=== PATIENT | male | born 1960 | race Caucasian/White ===

== ENCOUNTER 2023-09-21 11:47 | Inpatient (IN) | payer OTHER, SELFPAY ==
[2023-09-21] VITALS (15 sets, daily range): BP systolic 116–162; BP diastolic 75–100; BMI 29.0
--- NOTE | 2023-09-21 09:56 | EDRN ---
Acosta FIGUEROA in room w/pt at this time.
--- NOTE | 2023-09-21 10:05 | ED.GENMED ---
History of Present Illness
<Domenico Carrizales PA-C - Last Filed: 09/21/23 10:50>
General
Chief Complaint: Chest Pain
Source: patient
Exam Limitations: none
Time Seen by Provider: 09/21/23 09:50
Travel History
Have you had any contact with someone who has COVID-19?: No
Do you have any symptoms of coronavirus? Fever > 100 degrees, chills, cough, shortness of breath, sore throat, loss of taste or smell, muscle aches, or headache?: No
History of Present Illness
History of Present Illness:
63-year-old male with history of hypertension hyperlipidemia presents with worsening symptoms. He has been in touch with cardiology had a recent stress test which he failed. He had an echocardiogram recently. He was actually due for heart
catheterization today however symptoms worsened this morning he spoke with his tour counselor and was advised to come in. He notes mainly exertional chest pain over the past month the amount of exertion needed to reproduce pain is significantly
decreased. While at rest on the bed currently states his pain is barely noticeable. He notes more so in the fatigue. No pleuritic discomfort. No recent extended travel or surgery. He has a family history cardiac disease.
Phy Exam
<Domenico Carrizales PA-C - Last Filed: 09/21/23 10:50>
Physical Exam
Physical Exam:
General: Uncomfortable slightly anxious appearing male no acute respiratory distress
HEENT: Normocephalic atraumatic
Heart: Regular rate and rhythm no murmurs
Lungs: Clear to auscultation bilaterally no wheezing
Abdomen is soft nontender nondistended
Extremities: No cyanosis
Scores
<Domenico Carrizales PA-C - Last Filed: 09/21/23 10:50>
Heart Score for Chest Pain Patients
STEMI patient?: No
History: Highly Suspicious
ECG: Nonspecific Repolarization
Age: >45 - <65 years
Risk Factors: 1 or 2 Risk Factors
Troponin: </= Normal Limit
Heart Score for Chest Pain Patients: 5
Heart Score Risk: 20.3% MACE over next 6 weeks
Course
Daynalt;Domenico Carrizales PA-C - Last Filed: 09/21/23 10:50>
Orders/Labs/Results
Orders:
Orders
09/21/23 09:45
EKG [Electrocardiogram (*1)] Urgent
Reason for Study: Chest Pain
EKG- Treatment ONCE
09/21/23 10:10
Aspirin Chewable [Low Strength Aspirin] 243 mg PO NOW STA
09/21/23 10:15
Complete Blood Count/With Diff Urgent
Comprehensive Metabolic Panel Urgent
NT-proBNP Urgent
Troponin I Urgent
09/21/23 10:27
CR Chest Portable - 1 View Urgent
Comment:
Reason For Exam: chest pain
Reason Study Needs to be Portable: Patient Unstable
Abnormal Lab Results
09/21/23
10:15
MPV 11.0 H fL
(7.4-10.4)
Absolute Lymphs (auto) 1.1 L 10^3/uL
(1.2-3.4)
Neutrophils % 78.5 H %
(42.2-75.2)
Lymphocytes % 14.5 L %
(20.5-51.1)
09/21/23 10:15
Vital Signs
Initial and Last Documented VS:
Initial Vital Signs
Temp Pulse Resp BP Pulse Ox
97.6 F 65 16 162/97 100
09/21/23 09:45 09/21/23 09:45 09/21/23 09:45 09/21/23 09:45 09/21/23 09:45
Last Documented Vital Signs
Temp Pulse Resp BP Pulse Ox
97.6 F 65 16 162/97 100
09/21/23 09:45 09/21/23 09:45 09/21/23 09:45 09/21/23 09:45 09/21/23 09:45
<Sergio Salcedo MD - Last Filed: 09/21/23 10:27>
Orders/Labs/Results
Orders:
Orders
09/21/23 09:45
EKG [Electrocardiogram (*1)] Urgent
Reason for Study: Chest Pain
EKG- Treatment ONCE
09/21/23 10:10
Aspirin Chewable [Low Strength Aspirin] 243 mg PO NOW STA
09/21/23 10:15
Complete Blood Count/With Diff Urgent
Comprehensive Metabolic Panel Urgent
NT-proBNP Urgent
Troponin I Urgent
09/21/23 10:27
CR Chest Portable - 1 View Urgent
Comment:
Reason For Exam: chest pain
Reason Study Needs to be Portable: Patient Unstable
Abnormal Lab Results
09/21/23
10:15
MPV 11.0 H fL
(7.4-10.4)
Absolute Lymphs (auto) 1.1 L 10^3/uL
(1.2-3.4)
Neutrophils % 78.5 H %
(42.2-75.2)
Lymphocytes % 14.5 L %
(20.5-51.1)
09/21/23 10:15
Vital Signs
Initial and Last Documented VS:
Initial Vital Signs
Temp Pulse Resp BP Pulse Ox
97.6 F 65 16 162/97 100
09/21/23 09:45 09/21/23 09:45 09/21/23 09:45 09/21/23 09:45 09/21/23 09:45
Last Documented Vital Signs
Temp Pulse Resp BP Pulse Ox
97.6 F 65 16 162/97 100
03/08/24 09:45 09/21/23 09:45 09/21/23 09:45 09/21/23 09:45 09/21/23 09:45
<Domenico Carrizales PA-C - Last Filed: 09/21/23 10:50>
MDM/Problems Addressed
Differential Diagnosis Includes:
Exertional chest pain over the past month worsening recently. Initially due for catheterization later today but sent in for more urgent evaluation. Currently at rest he notes minimal if any pain will obtain EKG and labs. Contact cardiology.
<Domenico Carrizales PA-C - Last Filed: 09/21/23 10:50>
*Critical Care Note
Total Time (30-74mins, 75-104mins- exclusive of procedures): Not Applicable
ED Attending Note
<Domenico Carrizales PA-C - Last Filed: 09/21/23 10:50>
-
Portions of this chart may have been created with voice recognition software.� Occasional wrong word or��sound alike� substitutions may have occurred due to the inherent limitations of voice recognition software.
<Sergio Salcedo MD - Last Filed: 09/21/23 10:27>
ED Attending Note
I performed the substantive portion of visit, reviewed & personally made and approve the management plan that is documented in note by myself or PHIL.: Yes
ED Attending Note:
Patient presents to ED for evaluation secondary to exertional chest pain over the past 1 month along with an abnormal outpatient stress test. Chest pain described as tightness, nonradiating, worse with exertion, gradually improves at rest. Denies
fever or chills. Denies shortness of breath. Denies nausea or vomiting. Denies dizziness. Denies diaphoresis. Denies previous history of similar symptoms. Patient does have a history of hypertension and hypercholesterolemia. Denies smoking or
drinking alcohol. Denies recent illness.
Discussed with Dr. Davis, cardiology Marketing Strategist attending. Requesting admission under pulse and cardiology services for potential cardiac catheterization. Does not feel that patient needs heparin protocol at this time, but will defer to admitting
tour counselor. Dr. Hoskins from [facility] consulted
Discharge Plan
Departure
Patient Disposition: Admit
Date of Disposition: 09/21/23
Time of Disposition: 10:49
Admit to: IVU
Presentation/result/management discussed w/ accepting /: Aidee
Discharge Problem:
Chest pain
Prescriptions:
No Action
metoprolol succinate 50 mg tablet extended release 24 hr
50 mg PO DAILY
amlodipine 5 mg tablet
5 mg PO DAILY
aspirin 81 mg tablet,delayed release (DR/EC)
81 mg PO DAILY
isosorbide mononitrate 60 mg tablet extended release 24 hr
60 mg PO DAILY
nitroglycerin 0.4 mg tablet, sublingual
0.4 mg sublingual PRN PRN (Reason: chest pain)
rosuvastatin 20 mg tablet
20 mg PO DAILY
Referrals:
Miguel Angel Torres MD [Family Provider] -
Interventions
Interventions:
*Risk Screen - Suicide Last Done: 09/21/23 09:45
*General Assessment Last Done: 09/21/23 09:45
*Neglect/Abuse Screening Last Done: 09/21/23 09:45
--- NOTE | 2023-09-21 10:07 | EDRN ---
Dr. Salcedo in room w/pt at this time.
--- NOTE | 2023-09-21 10:15 | CON.CAR ---
Addendum entered and electronically signed by Billy Hoskins MD 09/21/23 13:13:
I saw and examined the patient.
The IV TECHNICIAN or PA's note was reviewed and I agree with the note.
Comment: General: Well developed, well nourished in NAD.
Neck: Supple, no JVD, HJR, carotids +2 B/L, no bruits bilaterally.
Heart: Non displaced PMI, RRR, no murmurs, No S3, S4, no rubs.
Lungs: Clear to auscultation bilaterally, no wheeze, rhonchi, rubs bilaterally,
normal expiratory phase.
Abdomen: Normal bowel sounds, soft, non-tender, non-distended.
Extremities: No clubbing, cyanosis or edema bilaterally.
Neuro: Grossly nonfocal, awake, alert and oriented x3.
Mohan has a history of hypertension, hyperlipidemia, sleep apnea on CPAP. He has had worsening chest pain. Stress test was high risk with inferolateral ischemia noted. He came to ER with worsening symptoms and now admitted for cardiac
catheterization. Of note he has had chest discomfort but lesser degrees of exertion and also some mild pain at rest.
He will undergo cardiac catheterization by Dr. Mckee later today. Treatment will depend on the results of the catheterization. Of note ejection fraction is 45% and may need treatment of cardiomyopathy.
Original Note:
Consultation
Consultation Request
Date/Time Consultation Requested: 09/21/2023
Date/Time Consultation Performed: 09/21/2023
Requesting Provider: Dr. Salcedo
Performing Provider: Dr. Hoskins
Reason for Consultation: Chest pain
Medical History
-
History of Present Illness:
HPI: Yves is a 63 year old male with PMH of HTN, HLD, and NESS on CPAP who presented to [facility] due to progressively worsening angina. He was recently seen by cardiology at [facility] and was arranged for echo and stress testing. Stress testing reportedly
was high risk with significant inferolateral ischemia noted. Due to progressive symptoms, came to ER for sooner evaluation. He reports overall symptoms started approximately 1 month ago when he began having increased chest pain with exertion.
Symptoms resolved with rest. Over time, symptoms have been brought on with lesser and lesser degrees of exertion and now he is symptomatic with minimal exertion and has mild pain at rest. Denies any associated shortness of breath, dizziness,
lightheadedness, lower extremity edema, or diaphoresis. He reports currently he has very minimal discomfort. He notes no personal prior cardiac history, however notes strong family history in his mother, father, and brother.
PMH:
Abnormal, high risk stress test
Cardiomyopathy
HTN
HLD
NESS on CPAP
Past Medical History
Past Medical History: Other (In HPI)
Past Surgical History: Other (Hernia surgery 2014)
Social History
Tobacco: Non-Smoker
Alcohol: Occasional
Drug: None
Personal:
Living: With Family
Employment: Employed (Insurance)
Family History
Family History: CAD
Review of Systems
-
History Source: Patient
All other systems: Negative unless noted
Physical Exam
Vital Signs
Temp Pulse Resp BP Pulse Ox
97.6 F 65 16 162/97 100
09/21/23 09:45 09/21/23 09:45 09/21/23 09:45 09/21/23 09:45 09/21/23 09:45
Physical Exam
General: Well Developed, Well Nourished and No Apparent Distress
HEENT: Normocephalic, Anicteric and Moist Mucous Membranes
Respiratory: Clear and Non Labored Respirations
Cardiac: S1/S2 and Regular Rhythm
Musculoskeletal: No Clubbing, No Cyanosis and No Edema
Skin: Warm and Dry
Neuro: AO x 3 and Nonfocal/Grossly Intact
Psych: Calm
Impression / Plan
-
PCP: Dr. Torres
Envelope Folder: Dr. Guillen
Impression:
Presented with chest pain
Unstable angina
Abnormal, high risk stress test
Cardiomyopathy, suspected ischemic
HTN
HLD
NESS on CPAP
Echo 09/05/2023: EF 45%, mild concentric LVH, no significant valvular disease
Plan:
-Presented for evaluation of progressive angina. He has noted chest pain with even minimal exertion. Symptoms have progressed over the past month, prompting ER evaluation.
-Recent OP echo as noted above showed EF 45%.
-He then had stress test 09/14/2023 which reportedly was high risk with significant ischemia. Report requested.
-Presented today for more urgent eval as symptoms have worsened.
-Troponin negative x1 in ER.
-Plan will be to admit to IVU with plan for urgent LHC later today with Dr. Davis.
-Aspirin 324mg given in ER. Continue aspirin 81 mg daily. Denies any notable chest pain currently while resting in ER, will hold off on heparin.
-Continue medical therapy with Imdur, amlodipine, and Toprol.
-Continue crestor.
HPI: Yves is a 63 year old male with PMH of HTN, HLD, and NESS on CPAP who presented to [facility] due to progressively worsening angina. He was recently seen by cardiology at [facility] and was arranged for echo and stress testing. Stress testing reportedly
was high risk with significant inferolateral ischemia noted. Due to progressive symptoms, came to ER for sooner evaluation. He reports overall symptoms started approximately 1 month ago when he began having increased chest pain with exertion.
Symptoms resolved with rest. Over time, symptoms have been brought on with lesser and lesser degrees of exertion and now he is symptomatic with minimal exertion and has mild pain at rest. Denies any associated shortness of breath, dizziness,
lightheadedness, lower extremity edema, or diaphoresis. He reports currently he has very minimal discomfort. He notes no personal prior cardiac history, however notes strong family history in his mother, father, and brother.
Data Reviewed
-
EKG: Tracing Personally Visualized and interpreted
Radiology: Report Reviewed by me
Medical Tests (Nuc Med, Echo etc): Report Reviewed by me
Labs: Labs Reviewed by me
Old Records: Requested and Reviewed
[2023-09-21 10:24] LABS: % Basophils 0.4 % (0-2); % Eosinophils 0.7 % (0-6); % Immature Granulocytes 0.4 % (0-0.5); % Lymphocytes 14.5 % (20.5-51.1); % Monocytes 5.5 % (1.7-9.3); % Neutrophils 78.5 % (42.2-75.2); Absolute Eosinophils 0.1 10^3/uL (0-0.7); Absolute Lymphocytes 1.1 10^3/uL (1.2-3.4); Absolute Monocytes 0.4 10^3/uL (0.1-0.6); Hematocrit 42.7 % (39.0-52.0); Hemoglobin 14.4 g/dL (13.0-18.0); Mean Corp Hgb Conc. 33.7 g/dL (33.0-37.0); Mean Corpuscular Hgb 27.6 pg (27.0-31.0); Nucleated Red Blood Cells % 0 % (-); Platelet Count 160 10^3/uL (130-400); Red Blood Cell Count 5.21 10^6/uL (4.70-6.10); Red Cell Dist. Width 12.7 % (11.5-14.5); White Blood Cell Count 7.6 10^3/uL (4.8-10.8)
[2023-09-21] MEDS: LOW STRENGTH ASPIRIN 243 MG PO (10:25)
--- NOTE | 2023-09-21 10:35 | EDRN ---
[facility] cardiology PA in w/ pt at this time.
--- NOTE | 2023-09-21 10:40 | EDRN ---
Portable CXR done at stretcher side at this time.
[2023-09-21 10:52] LABS: ALT (SGPT) 70 U/L (0-50); AST (SGOT) 52 U/L (17-59); Albumin 4.3 g/dl (3.5-5.0); Alkaline Phosphatase 85 U/L (38-126); Blood Urea Nitrogen 19 mg/dl (9-20); Calcium 9.5 mg/dl (8.4-10.2); Carbon Dioxide 28 mmol/L (22-30); Chloride 104 mmol/L (98-107); Glucose 96 mg/dl (70-99); Potassium 4.2 mmol/L (3.5-5.1); Sodium 139 mmol/L (135-145); Total Bilirubin 0.8 mg/dl (0.2-1.3); Total Protein 6.9 g/dl (6.3-8.2); eGFR > 60.00
[2023-09-21 10:55] LABS: NT-proBNP 804 pg/ml; Troponin I < 0.012 ng/ml
--- NOTE | 2023-09-21 11:01 | EDRN ---
Dr. Hoskins in room w/ pt at this time.
--- NOTE | 2023-09-21 13:30 | EDRN ---
2 paving and surfacing labourer nurses down to ED to bring patient up to the Creative Services Producer
[2023-09-21] MEDS: NSS 1000 IV (14:00)
--- NOTE | 2023-09-21 14:40 | CONSULT.CT ---
Consultation
-
Date/Time Consultation Requested: 09/21/23
Date/Time Consultation Performed: 10/11/23 1420
Requesting Provider: Dr. Jesse Davis MD
Performing Provider: Mary Carmen Payne PA-C on behalf of of Dr. Jayme Hernandez MD.
Reason for Consultation: Evaluation for coronary artery revascularization
Patient History
Physicians
Family Physician: Dr. Miguel Angel Torres MD.
Outpatient Manager Linux: Dr. Uli Dunlap MD.
Inpatient Manager Linux: MELL-Dr. Jesse Davis MD.
History of Present Illness
Patient is extremely pleasant 63-year-old male with PMH of HTN, HLD, elevated PSA/BPH, prostate biopsy currently undergoing workup, and NESS on CPAP.
Patient has been experiencing intermittent chest pain since June 2023. Chest pain originally would present with exertion but over the past few months has progressed with minimal exertion or rest. Patient sought care with his PCP and
was referred to [facility] where he underwent echocardiogram and stress testing. Stress testing was reported as abnormal with significant inferior lateral ischemia.
Today on 09/21/2023 patient continued with progressive chest pain and presented to [facility]'s emergency department. EKG was performed showing sinus rhythm (71 bpm), and ST and T wave abnormality indicating inferolateral ischemia.
Troponin was negative at less than 0.012. Given the patient's history and symptoms he was admitted and taken to the cardiac catheterization lab.
Subsequent cardiac catheterization revealed multivessel coronary artery disease. Please see Dr. Davis's note for complete details, summary is currently unavailable. CT surgery was consulted for evaluation for coronary artery revascularization.
Past Medical History
Past Medical History: Other
HTN
HLD
Elevated PSA/BPH
Prostate biopsy currently undergoing workup
NESS on CPAP
Past Surgical History
Past Surgical History: Other
Right inguinal hernia repair-2013
Prostate biopsy 05/2023
Dental History
Noncontributory
Family History
Mother: at Age (87) and Cause of (Complications with CHF. History of CABG)
Father: at Age (73) and Cause of (Complications with diabetes and sepsis. Also history of CABG)
Family Medical History: CAD
Social History
Alcohol: Occasional (1-2 drinks/month )
Drug: None
Tobacco: Non-Smoker
Personal: (For children)
Living: With Spouse
Employment: Employed (Insurance and manager commercial real estate)
Allergies
Allergy/AdvReac Type Severity Reaction Status Date / Time
No Known Allergies Allergy Unverified 09/21/23 10:28
Home Medications
Medication Instructions Recorded Confirmed Type
amlodipine 5 mg tablet 5 mg PO DAILY Blood Pressure 09/21/23 09/21/23 History
aspirin 81 mg tablet,delayed 81 mg PO DAILY Blood Clot 09/21/23 09/21/23 History
release Prevention/Tx
isosorbide mononitrate 60 mg 60 mg PO DAILY Heart 09/21/23 09/21/23 History
tablet,extended release 24 hr Disease/Condition
metoprolol succinate 50 mg 50 mg PO DAILY Blood Pressure 09/21/23 09/21/23 History
tablet,extended release 24 hr
nitroglycerin 0.4 mg sublingual 0.4 mg sublingual PRN PRN chest 09/21/23 09/21/23 History
tablet pain
rosuvastatin 20 mg tablet 20 mg PO DAILY High Cholesterol 09/21/23 09/21/23 History
Review of Systems
-
History Source: Patient
General: Reports Fatigue; Denies Fever, Weight Gain or Weight Loss
HEENT: Denies Visual Changes, Dysphagia, Hoarseness or Sore Throat
Respiratory: Reports TURNER; Denies SOB, Cough, Asthma or PND
Cardiac: Reports Chest Pain; Denies CAD, Known Vascular Disease, Palpitations, Nausea, Vomiting, Diaphoresis or Edema
Abdomen/GI: Denies Abdominal Pain, Reflux, Indigestion, Diarrhea, Constipation or BRBPR
: Reports Nocturia (1x/night ); Denies Dysuria, Frequency, Urgency or Hematuria
Musculoskeletal: Denies Myalgias or Arthralgias
Skin: Denies Rash
Neurological: Reports Headaches (Occasional); Denies CVA, TIA, Syncope or Seizures
Vascular: Denies Claudication or PVD
Physical Exam
Vital Signs
Temp 98.4 F 09/21/23 14:04
Temp route: Oral 09/21/23 14:04
Pulse 64 09/21/23 14:04
Resp Rate 16 09/21/23 14:04
Blood pressure 127/100 09/21/23 14:02
Blood pressure extremity used: Left upper arm 09/21/23 14:04
Position: Lying 09/21/23 14:04
MAP (cuff-Claudio Monitor) 110 09/21/23 14:02
SaO2 98 09/21/23 14:09
Oxygen Mode of Delivery Room air 09/21/23 14:09
Can the patient verbally communicate their pain? Yes 09/21/23 12:00
Pain scale ratin 09/21/23 12:00
Actual Weight 207 lb 10.807 oz 09/21/23 10:10
Body Mass Index (BMI) 29.0 09/21/23 10:10
Labs
09/21/23 10:15
09/21/23 10:15
Troponin I < 0.012 ng/ml 09/21/23 10:15
Wpr-O-Zjnvpecasqj Pept 804 pg/ml 09/21/23 10:15
Diagnostic Studies
1.) EKG 09/21/23: SR (71) inferolateral ischemia
2.) CXR 09/21/23: No acute abnormalities
3.) Cardiac catheterization 09/21/23: Multivessel CAD (fully patient currently pending).
Exam
General: Well Developed, Well Nourished, No Apparent Distress and Comfortable
HEENT: Normocephalic, Moist Mucous Membranes, Atraumatic, PERRLA and EOMI
Neck: Trachea Midline; Negative Carotid Bruit
Respiratory: Clear; Negative Wheezes, Crackles, Rhonchi or Accessory Muscle Use
Cardiac: S1/S2 and Regular Rhythm; Negative Murmur, Rub or Gallop
GI: Soft, Non Tender, Non Distended and Normal Bowel Sounds (slightly diminished )
Rectal: Deferred by Provider
Skin: Warm and Dry; Negative Rash
Neuro: AO x 3, Nonfocal/Grossly Intact and CN X-XII Intact
Extremities: Negative Upper Level Edema, Lower Level Edema, Upper Level Cyanosis, Lower Level Cyanosis, Upper Level Clubbing or Lower Level Clubbing
Psych: Calm
Assessment / Plan
-
Assessment:
63-year-old male with PMH of:
HTN
HLD
Elevated PSA/BPH
Prostate biopsy currently undergoing workup
NESS on CPAP
Now found to have newly diagnosed:
Multivessel CAD
Unstable angina
Abnormal stress test
Plan:
Patient's case to be discussed with attending physician Dr. Jayme Hernandez MD.
Preoperative routine cardiothoracic surgery workup will be initiated.
Patient will be anticipated for CABG x 4-5 utilizing GUERRA, radial artery, and greater saphenous vein.
STS risk stratification will be calculated after diagnostic data has been obtained.
Patient will undergo surgical intervention next week. Specific date will be determined after attending physicians full evaluation.
--- NOTE | 2023-09-21 15:10 | ITS.CL.CATH ---
Building Official - Catheterization
Cardiac Catheterization
Procedure Report:
LEFT HEART CATHETERIZATION
Date of Procedure: September 21, 2023
Procedures performed:
1: Coronary angiography
2: Left ventriculography
Primary Care Physician: Dr. Miguel Angel Gomez
Primary Manager Flight Operations: Dr. Uli Dunlap
INDICATION: The patient is a 63-year-old man with a past medical history significant for hypertension who presents with crescendo unstable angina. Nuclear perfusion scan showed extensive inferolateral ischemia and echocardiogram showed mild LV
systolic dysfunction with inferior wall motion abnormality. He came to the [facility] emergency room and has been reporting intermittent chest discomfort overnight and this morning. Initial cardiac enzymes are negative.
ACCESS: The patient was prepped and draped in usual sterile fashion. A 6 Italian sheath was placed in the right radial artery using the Seldinger over the wire technique.
HEMODYNAMIC FINDINGS (mmHg):
LV(s/d,EDP): 140/14, 23
Ao(s/d,m): 141/80, 96
ANGIOGRAPHIC FINDINGS:
Single-plane Left Ventriculography in BLUM Projection: Severe inferior hypokinesis. Moderate anterolateral hypokinesis. Overall preserved LV systolic function with a visually estimated ejection fraction of 50 to 55%. No significant mitral
regurgitation.
Coronary Angiography:
Dominance: Right
Left Main: Medium caliber, widely patent.
Left Anterior Descending: The LAD is a medium caliber vessel that has moderate diffuse calcification the proximal and mid portions. There is a long area of 50 to 70% mid disease. The LAD gives rise to 1 large bifurcating diagonal branch. This
vessel also has severe proximal 70 to 80% disease. The diagonal branch has a very small medial, large central, and medium lateral branches. All have BRIAN-3 flow. The central branch is the best surgical target. The distal LAD appears normal at
the typical GUERRA touchdown site with a smooth 50% distal smooth stenosis. The apical LAD gives rise to brisk eyet-no-edaeq collaterals and fills the right PDA and right posterior left ventricular branch.
Left Circumflex: The left circumflex is a relatively small nondominant system. There is severe diffuse proximal 70 to 80% disease before the takeoff of 2 major distal obtuse marginal branches. The first obtuse marginal branch is a medium to large
vessel that has a preocclusive 95% proximal disease with BRIAN II distal flow. The distal circumflex gives rise to a medium caliber second obtuse marginal branch which has a 80 to 90% mid stenosis with BRIAN II distal flow.
Right Coronary: Severe proximal disease with a functional mid occlusion.
Fluoroscopy Time (min): 2.8
Radiation Dose (mGy): 389
DAP (Gy.cm2): 29
Closure device: None. A TR band was applied for hemostasis at the right wrist.
Complications: None.
ASSESSMENT:
1: Severe multivessel obstructive coronary disease.
2: Preserved LV systolic function with no significant mitral regurgitation. Regional wall motion abnormality in both the inferobasal and anterolateral segments.
3: Mildly elevated filling pressures.
CONCLUSIONS and RECOMMENDATIONS:
1: CT surgical evaluation for CABG. Ideally the patient would get graft to the GUERRA, major diagonal, OM1, right PDA, and right PLV.
2: Given his crescendo and unstable symptoms I will admit for inpatient evaluation and likely surgery.
Miguel Davis M.D.
Copy to: Dr. Miguel Angel Gomez
--- NOTE | 2023-09-21 16:46 | CM ---
spoke to pt, and daughter in room. he is prev indep, lives with his and daughter in a 2 story home with a first floor set up if needed. he rosa any dme's. plan is for CABG next sun. ct surgery book given. preop discussion started. cm to
follow up sunday.
--- NOTE | 2023-09-21 19:15 | PTCARENOTE ---
Pt received post cardiac cath done via right radial artery. Radial band removed without problem , no sign of bleeding or hematoma. Pt OOB to bathroom, he denies any discomfort. Telemetry shows sinus rhythm. Pt seen by . ECHO and Carotid
U/S done at bedside. CVOR work up in progress.
--- NOTE | 2023-09-21 22:34 | PTCARENOTE ---
Called CT- they stated that the pt will be taken tomorrow am- Ativan not given at this point.
[2023-09-22 04:46] VITALS: BP 131/79
[2023-09-22 05:32] LABS: INR 1.15; PT 14.5 Sec (11.4-14.6)
[2023-09-22 05:33] LABS: APTT 30.6 Sec (23.4-35.0)
[2023-09-22 05:42] LABS: ALT (SGPT) 58 U/L (0-50); AST (SGOT) 39 U/L (17-59); Albumin 3.7 g/dl (3.5-5.0); Alkaline Phosphatase 86 U/L (38-126); Blood Urea Nitrogen 20 mg/dl (9-20); Calcium 9.1 mg/dl (8.4-10.2); Carbon Dioxide 25 mmol/L (22-30); Chloride 105 mmol/L (98-107); Estimated Creatinine Clearance 117 ml/min; Glucose 84 mg/dl (70-99); HDL Cholesterol 29 mg/dl; LDL Cholesterol, Calculated 26 mg/dl; Potassium 3.6 mmol/L (3.5-5.1); Sodium 139 mmol/L (135-145); Total Bilirubin 0.6 mg/dl (0.2-1.3); Total Cholesterol 74 mg/dl (50-199); Triglyceride 97 mg/dl (10-149); Very Low Density Lipoprotein 19 mg/dl (0-30); eGFR > 60.00
[2023-09-22 06:00] VITALS: BMI 28.5
[2023-09-22 07:27] VITALS: BP 130/80
[2023-09-22] MEDS: NORVASC 5 MG PO (07:31)
[2023-09-22] MEDS: TOPROL XL 50 MG PO (07:31)
[2023-09-22] MEDS: CRESTOR 20 MG PO (07:31)
[2023-09-22] MEDS: ATIVAN 2 MG PO (07:31)
[2023-09-22] MEDS: ASPIR LOW (ENTERIC COATED) 81 MG PO (07:31)
[2023-09-22] MEDS: IMDUR (EXTENDED RELEASE) 60 MG PO (07:31)
--- NOTE | 2023-09-22 08:34 | W.PN.UPDATE ---
Update Note
Progress Note Update
STS RISK SCORE
Procedure Type:�Isolated CABG
PERIOPERATIVE OUTCOME ESTIMATE %
Operative Mortality 0.461%
Morbidity & Mortality 2.8%
Stroke 0.383%
Renal Failure 0.278%
Reoperation 1.78%
Prolonged Ventilation 1.34%
Deep Sternal Wound Infection 0.1%
Long Hospital Stay (>14 days) 1.18%
Short Hospital Stay (<6 days)* 72.1%
Clinical Summary
Planned Surgery: Isolated CABG, Urgent, First cardiovascular surgery
Demographics: 63 year old, White, male, 94.2kg, 180cm, BMI: 29.1 kg/m�
Lab Values: Creatinine: 0.7 mg/dL, Hematocrit: 42.7%, WBC Count: 7.6 10�/�L, Platelet Count: 250319 cells/�L
Substance Abuse: Never smoker
Risk Factors / Comorbidities: Family Hx of CAD
Pulmonary RF: Sleep Apnea
Cardiac Status: NYHA Class II, Ejection Fraction = 53%
Coronary Artery Disease: 3 vessels diseased, Unstable Angina
Valve Disease: Trivial/Trace AR, Trivial/Trace MR, Trivial/Trace TR
--- NOTE | 2023-09-22 08:55 | W.PN.CARDCBS ---
Addendum entered and electronically signed by Billy Hoskins MD 09/22/23 12:01:
General: Well developed, well nourished in NAD.
Neck: Supple, no JVD, HJR, carotids +2 B/L, no bruits bilaterally.
Heart: Non displaced PMI, RRR, no murmurs, No S3, S4, no rubs.
Lungs: Clear to auscultation bilaterally, no wheeze, rhonchi, rubs bilaterally,
normal expiratory phase.
Abdomen: Normal bowel sounds, soft, non-tender, non-distended.
Extremities: No clubbing, cyanosis or edema bilaterally.
Neuro: Grossly nonfocal, awake, alert and oriented x3.I saw and examined the patient.
The PROTECTION CONSULTANT or PA's note was reviewed and I agree with the note.
Comment: Stable cardiology status. Await CABG. Discussed with CV surgery PA's. Remains chest pain-free
Original Note:
Today's Communication / Plan
-
CABG eval underway
continue asa, crestor, toprol, norvasc, imdur
pain free
Impression / Plan
-
PCP: Dr. Torres
Veneer Joiner: Dr. Guillen
Impression:
Presented with chest pain
Unstable angina
Abnormal, high risk stress test
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
Ischemic cardiomyopathy, EF 45%
HTN
HLD
NESS on CPAP
Echo 09/05/2023: EF 45%, mild concentric LVH, no significant valvular disease
Plan:
-Patient presented with CP after having stress test 09/14/23 which was high risk and echo with EF 45%
-cardiac cath 09/21/23 with severe MV CAD
-chest pain free
-CT surgical evaluation ongoing. <50% carotid stenosis B/L by US. CXR read as normal
-continue asa
-LDL 26. continue crestor
-continue imdur, norvasc, toprol. consider addition of jasen/arb/aldactone post surgery given EF 45%. hopefully will normalize post revascularization
-d/w nursing
HPI: Yves is a 63 year old male with PMH of HTN, HLD, and NESS on CPAP who presented to [facility] due to progressively worsening angina. He was recently seen by cardiology at [facility] and was arranged for echo and stress testing. Stress testing reportedly
was high risk with significant inferolateral ischemia noted. Due to progressive symptoms, came to ER for sooner evaluation. He reports overall symptoms started approximately 1 month ago when he began having increased chest pain with exertion.
Symptoms resolved with rest. Over time, symptoms have been brought on with lesser and lesser degrees of exertion and now he is symptomatic with minimal exertion and has mild pain at rest. Denies any associated shortness of breath, dizziness,
lightheadedness, lower extremity edema, or diaphoresis. He reports currently he has very minimal discomfort. He notes no personal prior cardiac history, however notes strong family history in his mother, father, and brother.
Progress Note - Veneer Joiner
Subjective
Date of Service: September 22, 2023
Denies chest pain, shortness of breath
Objective
Labs:
09/21/23 10:15
09/22/23 04:53
Labs
Hgb 14.4 g/dL (13.0-18.0) 09/21/23 10:15
Hct 42.7 % (39.0-52.0) 09/21/23 10:15
Plt Count 160 10^3/uL (130-400) 09/21/23 10:15
PT 14.5 Sec (11.4-14.6) 09/22/23 04:53
INR 1.15 09/22/23 04:53
APTT 30.6 Sec (23.4-35.0) 09/22/23 04:53
Sodium 139 mmol/L (135-145) 09/22/23 04:53
Potassium 3.6 mmol/L (3.5-5.1) 09/22/23 04:53
BUN 20 mg/dl (9-20) 09/22/23 04:53
Creatinine 0.7 mg/dL (0.7-1.3) 09/22/23 04:53
Glucose 84 mg/dl (70-99) 09/22/23 04:53
Troponins
09/21/23
10:15
Troponin I < 0.012
Vital Signs and I&O:
Vital Signs
Temp Pulse Resp BP Pulse Ox
97.5 F 68 18 130/80 100
09/22/23 07:30 09/22/23 07:31 09/22/23 07:30 09/22/23 07:31 09/22/23 07:39
Vital Signs
Temp Pulse Resp BP Pulse Ox
97.5 F 68 18 130/80 100
09/22/23 07:30 09/22/23 07:31 09/22/23 07:30 09/22/23 07:31 09/22/23 07:39
Intake & Output
09/20/23 09/21/23 09/22/23 09/23/23
07:59 07:59 07:59 08:59
Intake Total 1220 / 1220
Balance 1220 / 1220
Physical Exam
Physical Exam
GEN: No distress, awake, alert, oriented x3
HEENT: supple, anicteric, mmm, eomi
LUNGS: CTA B/L, no wheezes/rales
CV: Reg, S1/S2, no murmur
ABD: soft, BS+, NT/ND
EXT: No cyanosis, clubbing, edema
NEURO: Gross non-focal
SKIN: Warm, pink, dry. No rash
[2023-09-22 09:39] LABS: Glycohemoglobin (HgbA1c) 5.7 % (4.0-5.6)
[2023-09-22 11:17] VITALS: BP 125/74
[2023-09-22 13:34] LABS: Urine Albumin Negative (Neg - Trace); Urine Bilirubin Negative (Negative); Urine Character Clear (Clear); Urine Color Yellow; Urine Glucose Negative (Negative); Urine Ketone 2+ (Negative); Urine Leukocyte Negative (Negative); Urine Nitrite Negative (Negative); Urine Occult Blood Negative (Negative); Urine Urobilinogen Negative (Neg - 1+)
[2023-09-22 15:38] VITALS: BP 136/97
--- NOTE | 2023-09-22 18:27 | PTCARENOTE ---
Pt had CT scan after medication with ativan for claustrophobia. Pt up walking in halls, he denies any discomfort. Telemetry shows sinus rhythm.
[2023-09-22 19:30] VITALS: BP 116/71
--- NOTE | 2023-09-22 21:26 | PTCARENOTE ---
Pt ambulating the halls as a self- plan of care discussed- VSS. CPAP at bedside- resp. came around to sign the form.
[2023-09-22 22:15] VITALS: BP 125/74
[2023-09-23 03:59] VITALS: BP 123/74
[2023-09-23 07:21] VITALS: BP 128/78
[2023-09-23] MEDS: NORVASC 5 MG PO (08:26)
[2023-09-23] MEDS: IMDUR (EXTENDED RELEASE) 60 MG PO (08:26)
[2023-09-23] MEDS: ASPIR LOW (ENTERIC COATED) 81 MG PO (08:26)
[2023-09-23] MEDS: CRESTOR 20 MG PO (08:26)
[2023-09-23] MEDS: TOPROL XL 50 MG PO (08:26)
--- NOTE | 2023-09-23 10:28 | W.PN.UPDATE ---
Update Note
Progress Note Update
CARDIAC SURGERY ATTENDING:
I had a long discussion w/ Mr. Parry and his at bedside this AM. We reviewed his pathology, discussed the proposed operative interventions, the associated perioperative risks [including, but not limited to, , stroke, NM, graft failure,
arrhythmia, pna, wes/f, infection, and bleeding], the expected in-hospital postoperative course, and the expected outpatient recovery. All questions were answered to the best of my abilities. The patient is agreeable to proceed. I anticipate CABG
x 4-5 w/ grafts to his LAD, D, OM, PDA, and possibly R PLB. He is tenatively scheduled for the OR on Sunday09/26/2023.
Please call with any questions or concerns.
Jayme Hernandez M.D.
[phone]
[2023-09-23 11:28] VITALS: BP 140/86
--- NOTE | 2023-09-23 13:21 | W.PN.CARDCBS ---
Today's Communication / Plan
-
Stable cardiology status
For CABG on 09/25
Impression / Plan
-
PCP: Dr. Torres
Head Refrigerating Engineer: Dr. Guillen
Impression:
Presented with chest pain
Unstable angina
Abnormal, high risk stress test
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
Ischemic cardiomyopathy, EF 45%
HTN
HLD
NESS on CPAP
Echo 09/05/2023: EF 45%, mild concentric LVH, no significant valvular disease
Plan:
For CABG tentatively on 09/25
Remains chest pain free
Discussed with patient and as well as nurse
LDL 26. continue crestor
continue imdur, norvasc, toprol. consider addition of jasen/arb/aldactone post surgery given EF 45%. hopefully will normalize post revascularization
HPI: Yves is a 63 year old male with PMH of HTN, HLD, and NESS on CPAP who presented to [facility] due to progressively worsening angina. He was recently seen by cardiology at [facility] and was arranged for echo and stress testing. Stress testing reportedly
was high risk with significant inferolateral ischemia noted. Due to progressive symptoms, came to ER for sooner evaluation. He reports overall symptoms started approximately 1 month ago when he began having increased chest pain with exertion.
Symptoms resolved with rest. Over time, symptoms have been brought on with lesser and lesser degrees of exertion and now he is symptomatic with minimal exertion and has mild pain at rest. Denies any associated shortness of breath, dizziness,
lightheadedness, lower extremity edema, or diaphoresis. He reports currently he has very minimal discomfort. He notes no personal prior cardiac history, however notes strong family history in his mother, father, and brother.
Progress Note - Head Refrigerating Engineer
Subjective
Date of Service: September 23, 2023
No chest pain or shortness of breath
Objective
Labs:
09/21/23 10:15
09/22/23 04:53
Labs
Hgb 14.4 g/dL (13.0-18.0) 09/21/23 10:15
Hct 42.7 % (39.0-52.0) 09/21/23 10:15
Plt Count 160 10^3/uL (130-400) 09/21/23 10:15
PT 14.5 Sec (11.4-14.6) 09/22/23 04:53
INR 1.15 09/22/23 04:53
APTT 30.6 Sec (23.4-35.0) 09/22/23 04:53
Sodium 139 mmol/L (135-145) 09/22/23 04:53
Potassium 3.6 mmol/L (3.5-5.1) 09/22/23 04:53
BUN 20 mg/dl (9-20) 09/22/23 04:53
Creatinine 0.7 mg/dL (0.7-1.3) 09/22/23 04:53
Glucose 84 mg/dl (70-99) 09/22/23 04:53
Troponins
09/21/23
10:15
Troponin I < 0.012
Vital Signs and I&O:
Vital Signs
Temp Pulse Resp BP Pulse Ox
98.2 F 71 16 140/86 98
09/23/23 11:28 09/23/23 11:28 09/23/23 11:28 09/23/23 11:28 09/23/23 11:54
Vital Signs
Temp Pulse Resp BP Pulse Ox
98.2 F 71 16 140/86 98
09/23/23 11:28 09/23/23 11:28 09/23/23 11:28 09/23/23 11:28 09/23/23 11:54
Intake & Output
09/21/23 09/22/23 09/23/23 09/24/23
05:59 05:59 06:59 06:59
Intake Total 240 / 240
Balance 240 / 240
Physical Exam
Physical Exam
General: Well developed, well nourished in NAD.
Neck: Supple, no JVD, HJR, carotids +2 B/L, no bruits bilaterally.
Heart: Non displaced PMI, RRR, no murmurs, No S3, S4, no rubs.
Lungs: Clear to auscultation bilaterally, no wheeze, rhonchi, rubs bilaterally,
normal expiratory phase.
Extremities: No clubbing, cyanosis or edema bilaterally.
Neuro: Grossly nonfocal, awake, alert and oriented x3.
[2023-09-23 15:23] VITALS: BP 123/90
[2023-09-23 18:58] VITALS: BP 128/84
--- NOTE | 2023-09-23 19:37 | PTCARENOTE ---
Pt OOB walking in halls today, he denies any discomfort. Telemetry shows sinus rhythm.
--- NOTE | 2023-09-23 22:10 | PTCARENOTE ---
assumed care. Patient in chair in room. NSR on telemetry, denies pain. Call sepulveda in reach
[2023-09-23 23:05] VITALS: BP 121/81
[2023-09-24] VITALS (7 sets, daily range): BP systolic 118–144; BP diastolic 79–91
[2023-09-24] MEDS: IMDUR (EXTENDED RELEASE) 60 MG PO (08:31)
[2023-09-24] MEDS: CRESTOR 20 MG PO (08:31)
[2023-09-24] MEDS: ASPIR LOW (ENTERIC COATED) 81 MG PO (08:31)
[2023-09-24] MEDS: TOPROL XL 50 MG PO (08:32)
[2023-09-24] MEDS: NORVASC 5 MG PO (08:32)
--- NOTE | 2023-09-24 10:08 | W.PN.CARDCBS ---
Addendum entered and electronically signed by Billy Hoskins MD 09/24/23 13:48:
I saw and examined the patient.
The BROADBAND TECHNICIAN or PA's note was reviewed and I agree with the note.
Comment: General: Well developed, well nourished in NAD.
Discussed with patient and . No chest pain. For CABG on 09/25.
Original Note:
Today's Communication / Plan
-
Ativan ordered as a PRN
Pain free on usual meds and surgery scheduled for Sunday
Impression / Plan
-
PCP: Dr. Torres
Bread Dumper: Dr. Guillen
Impression:
Presented with chest pain
Unstable angina
Abnormal, high risk stress test
Severe multivessel CAD by cath 09/22/23
Ischemic cardiomyopathy, EF 45%
HTN
HLD
NESS on CPAP
Echo 09/05/2023: EF 45%, mild concentric LVH, no significant valvular disease
Plan:
-Patient with an episode of anxiety 09/24/23 AM that was relieved with oxygen at 2 L NC. Patient says he had a similar feeling earlier this admission when he went down for CT chest 09/22/23 and that he was able to complete CT after receiving Ativan 2
mg PO x1. Patient does not normally take any meds for anxiety as an outpatient. Will make Ativan 0.5 mg IV x1 PRN available if needed for recurrent anxiety. Reviewed with patient that Ativan is not appropriately for home use and will not be
prescribed upon discharge.
-No chest pain
-Patient reports that he is scheduled for CABG on 09/26/23.
-Outpatient doses of aspirin 81 mg, Imdur ER 60 mg, Toprol XL 50 mg daily have been continued
-LDL was 26. Cont outpatient dose of Crestor 20 mg daily
-Troponin undetectable on admission
-EF 45% on 09/05/23 echo. Consider adding NEGRITA/ARB post-op
HPI: Yves is a 63 year old male with PMH of HTN, HLD, and NESS on CPAP who presented to [facility] due to progressively worsening angina. He was recently seen by cardiology at [facility] and was arranged for echo and stress testing. Stress testing reportedly
was high risk with significant inferolateral ischemia noted. Due to progressive symptoms, came to ER for sooner evaluation. He reports overall symptoms started approximately 1 month ago when he began having increased chest pain with exertion.
Symptoms resolved with rest. Over time, symptoms have been brought on with lesser and lesser degrees of exertion and now he is symptomatic with minimal exertion and has mild pain at rest. Denies any associated shortness of breath, dizziness,
lightheadedness, lower extremity edema, or diaphoresis. He reports currently he has very minimal discomfort. He notes no personal prior cardiac history, however notes strong family history in his mother, father, and brother.
Progress Note - Bread Dumper
Subjective
Date of Service: September 24, 2023
He was feeling anxious before, but better now
Objective
Labs:
09/21/23 10:15
09/22/23 04:53
Labs
Hgb 14.4 g/dL (13.0-18.0) 09/21/23 10:15
Hct 42.7 % (39.0-52.0) 09/21/23 10:15
Plt Count 160 10^3/uL (130-400) 09/21/23 10:15
PT 14.5 Sec (11.4-14.6) 09/22/23 04:53
INR 1.15 09/22/23 04:53
APTT 30.6 Sec (23.4-35.0) 09/22/23 04:53
Sodium 139 mmol/L (135-145) 09/22/23 04:53
Potassium 3.6 mmol/L (3.5-5.1) 09/22/23 04:53
BUN 20 mg/dl (9-20) 09/22/23 04:53
Creatinine 0.7 mg/dL (0.7-1.3) 09/22/23 04:53
Glucose 84 mg/dl (70-99) 09/22/23 04:53
Troponins
09/21/23
10:15
Troponin I < 0.012
Vital Signs and I&O:
Vital Signs
Temp Pulse Resp BP Pulse Ox
98.7 F 63 20 144/81 98
09/24/23 07:25 09/24/23 09:00 09/24/23 07:25 09/24/23 08:32 09/24/23 07:25
Vital Signs
Temp Pulse Resp BP Pulse Ox
98.7 F 63 20 144/81 98
09/24/23 07:25 09/24/23 09:00 09/24/23 07:25 09/24/23 08:32 09/24/23 07:25
Intake & Output
09/22/23 09/23/23 09/24/23 09/25/23
05:59 06:59 06:59 06:59
Intake Total 360 / 360
Balance 360 / 360
Physical Exam
Physical Exam
GEN: NAD. AAOx3
HEENT: EOMI, MMM
LUNGS: CTA B/L, no wheezes or rales
CV: Reg
ABD: soft, BS+, NT/ND
EXT: No edema B/L
NEURO: Gross non-focal
SKIN: No rash
--- NOTE | 2023-09-24 14:56 | CM ---
Chart reviewed. Met with the patient and his at bedside. Patient is independent of ADLS, lives with his in a 2 STH, 1st floor set up, 2 CHUCKY, 0 DME. Reviewed preoperative and postoperative instructions and restrictions, along with
showering guidelines. Patient is agreeing to a visit by CT Transitional RN. Plan is for the patient to return home with CT Transitional RN. CM to follow
[2023-09-24 20:34] LABS: Hepatitis C Antibody Negative (Negative)
[2023-09-24] MEDS: SENOKOT-S 1 TABLET PO (22:23)
--- NOTE | 2023-09-25 00:25 | PTCARENOTE ---
Pt rec'd at change of shift sitting with family at bedside. Pt appeared anxious about upcoming surgery. ' I wish you could just wind the clock a little faster'. Pt offered Ativan but refused at this time. emotional support given. IS at 2500. Sinus
on telemetry. Pt given Senokot after stating he hasn't had a bm in several days. Right radial site jaylin ,intact. Pt denies cp or sob.
[2023-09-25 03:59] VITALS: BP 152/94
--- NOTE | 2023-09-25 04:26 | PTCARENOTE ---
At 0345 PCT went to take VS found pt sitting on sofa in room. Pt stated he was having an anxiety attack. Emotional support given by RN, sat with pt for approx 10 mins. Pt stated he felt better after talking and went to sit in lounge after VS and
labs obtained. Pt did not want to take Ativan.
[2023-09-25 04:32] VITALS: BMI 28.5
[2023-09-25 05:08] LABS: ALT (SGPT) 59 U/L (0-50); AST (SGOT) 48 U/L (17-59); Albumin 4.2 g/dl (3.5-5.0); Alkaline Phosphatase 83 U/L (38-126); Direct Bilirubin 0.1 mg/dl (0.0-0.4); Total Bilirubin 0.8 mg/dl (0.2-1.3); Total Protein 6.7 g/dl (6.3-8.2)
[2023-09-25 07:19] VITALS: BP 135/93
[2023-09-25] MEDS: CRESTOR 20 MG PO (08:18)
[2023-09-25] MEDS: ASPIR LOW (ENTERIC COATED) 81 MG PO (08:18)
[2023-09-25] MEDS: TOPROL XL 50 MG PO (08:18)
[2023-09-25] MEDS: IMDUR (EXTENDED RELEASE) 60 MG PO (08:18)
[2023-09-25] MEDS: NORVASC 5 MG PO (08:19)
--- NOTE | 2023-09-25 10:03 | PTCARENOTE ---
resumed care of patient from previous RN. walking rounds completed. Pt appeared anxious about upcoming surgery. emotional support offered and explined what to expect post surgery. SR. HR 60s. RA. IS 2500. Right radial site potable water treatment operator ,intact. Pt denies cp
or sob. will contiue to monitor
--- NOTE | 2023-09-25 11:01 | CM ---
Chart reviewed. Patient is independent of ADLS, lives with his in a [address], 1st floor set up, 2 CHUCKY, 0 DME. Patient waiting to go to the OR on 09/25. Plan is for the patient to return home with CT Transitional RN.
[2023-09-25 11:06] VITALS: BP 121/76
--- NOTE | 2023-09-25 14:43 | W.PN.UPDATE ---
Update Note
Progress Note Update
Patient's pre operative studies reviewed.
All questions answered to patient's satisfaction.
Will plan for Operating Theatre tomorrow 09/25/22
CABG x 4-[address] Hernandez utilizing GUERRA, saphenous vein, and +/- radial artery. This will be evaluated by Dr. David MD.
--- NOTE | 2023-09-25 14:44 | W.PN.CARDCBS ---
Addendum entered and electronically signed by Billy Hoskins MD 09/25/23 15:20:
I saw and examined the patient.
The TIRE RECAPPING MACHINE OPERATOR or PA's note was reviewed and I agree with the note.
Comment: General: Well developed, well nourished in NAD.
Neck: Supple, no JVD, HJR, carotids +2 B/L, no bruits bilaterally.
Heart: Non displaced PMI, RRR, no murmurs, No S3, S4, no rubs.
Lungs: Clear to auscultation bilaterally, no wheeze, rhonchi, rubs bilaterally,
normal expiratory phase.
Extremities: No clubbing, cyanosis or edema bilaterally.
Neuro: Grossly nonfocal, awake, alert and oriented x3.
Stable cardiology status. For CABG on 09/26/2023
Original Note:
Today's Communication / Plan
-
for CABG in AM
Impression / Plan
-
PCP: Dr. Torres
Weblogic Developer: Dr. Guillen
Impression:
Presented with chest pain
Unstable angina
Abnormal, high risk stress test
Severe multivessel CAD by cath 09/22/23
Ischemic cardiomyopathy, EF 45%
HTN
HLD
NESS on CPAP
Echo 09/05/2023: EF 45%, mild concentric LVH, no significant valvular disease
Plan:
-with some anxiety again around 3AM however did not require ativan. will follow
-remains SB on review of tele
-CP free
-scheduled for CABG in AM, 09/25.
-continue asa, imdur, toprol, crestor
-EF 45% by echo 09/05/23. consider addition of jasen/arb post operatively
-d/w CT surgery, nursing
HPI: Yves is a 63 year old male with PMH of HTN, HLD, and NESS on CPAP who presented to [facility] due to progressively worsening angina. He was recently seen by cardiology at [facility] and was arranged for echo and stress testing. Stress testing reportedly
was high risk with significant inferolateral ischemia noted. Due to progressive symptoms, came to ER for sooner evaluation. He reports overall symptoms started approximately 1 month ago when he began having increased chest pain with exertion.
Symptoms resolved with rest. Over time, symptoms have been brought on with lesser and lesser degrees of exertion and now he is symptomatic with minimal exertion and has mild pain at rest. Denies any associated shortness of breath, dizziness,
lightheadedness, lower extremity edema, or diaphoresis. He reports currently he has very minimal discomfort. He notes no personal prior cardiac history, however notes strong family history in his mother, father, and brother.
Progress Note - Weblogic Developer
Subjective
Date of Service: September 25, 2023
with some anxiety overnight however no CP, SOB. for OR in AM
Objective
Labs:
09/21/23 10:15
09/22/23 04:53
Labs
Hgb 14.4 g/dL (13.0-18.0) 09/21/23 10:15
Hct 42.7 % (39.0-52.0) 09/21/23 10:15
Plt Count 160 10^3/uL (130-400) 09/21/23 10:15
PT 14.5 Sec (11.4-14.6) 09/22/23 04:53
INR 1.15 09/22/23 04:53
APTT 30.6 Sec (23.4-35.0) 09/22/23 04:53
Sodium 139 mmol/L (135-145) 09/22/23 04:53
Potassium 3.6 mmol/L (3.5-5.1) 09/22/23 04:53
BUN 20 mg/dl (9-20) 09/22/23 04:53
Creatinine 0.7 mg/dL (0.7-1.3) 09/22/23 04:53
Glucose 84 mg/dl (70-99) 09/22/23 04:53
Vital Signs and I&O:
Vital Signs
Temp Pulse Resp BP Pulse Ox
98.5 F 57 16 135/93 98
09/25/23 11:05 09/25/23 11:05 09/25/23 11:05 09/25/23 08:18 09/25/23 11:05
Vital Signs
Temp Pulse Resp BP Pulse Ox
98.5 F 57 16 135/93 98
09/25/23 11:05 09/25/23 11:05 09/25/23 11:05 09/25/23 08:18 09/25/23 11:05
Intake & Output
09/23/23 09/24/23 09/25/23 09/26/23
07:59 07:59 07:59 07:59
Intake Total 360 / 360 240 / 240
Balance 360 / 360 240 / 240
Physical Exam
Physical Exam
GEN: No distress, awake, alert, oriented x3. sitting in chair
HEENT: supple, anicteric, mmm, eomi
LUNGS: CTA B/L, no wheezes/rales
CV: Reg, S1/S2, no murmur
ABD: soft, BS+, NT/ND
EXT: No cyanosis, clubbing, edema
NEURO: Gross non-focal
SKIN: Warm, pink, dry. No rash
[2023-09-25 15:24] VITALS: BP 117/86
[2023-09-25 19:01] VITALS: BP 144/89
[2023-09-25] MEDS: MILK OF MAGNESIA 15 ML PO (19:10)
[2023-09-25 22:32] VITALS: BP 131/83
--- NOTE | 2023-09-25 23:50 | PTCARENOTE ---
Pt rec'd at change of shift awake,alert ambulating in chiu. No c/o pain. Pt reported still no bm since Sunday. MOM given with great results. Pt clipped and showered with 4% chlorhexidine soap. PA over to eval clip. Pt aware of npo status after mn
for 1 st case cvor. Sinus on telemetry.
[2023-09-26] VITALS (15 sets, daily range): BP systolic 82–142; BP diastolic 82–92; BMI 28.5
[2023-09-26] MEDS: MAGNESIUM OXIDE 500 MG PO (05:33)
[2023-09-26] MEDS: PROTONIX 40 MG PO (05:33)
[2023-09-26] MEDS: LOPRESSOR 25 MG PO (05:33)
[2023-09-26] MEDS: BACTROBAN 2% OINTMENT 1 APPLIC NASAL ×2 (05:34→19:55)
--- NOTE | 2023-09-26 05:57 | PTCARENOTE ---
Pt showered a second time with 4% chlorhexidine this morning and then used CHG wipes. am meds for OR given.
[2023-09-26 07:22] LABS: ACT+ - POC 96 Seconds (82-134)
[2023-09-26 07:26] LABS: B.E. - POC -0.1 mmol/L; Glucose - POC 94 mg/dl (65-99); HCO3 - POC 23 mmol/L (21-29); Hematocrit - POC 38 % PCV (42-52); Hemodilution- POC No; Hemoglobin Calculated - POC 12.8; Ionized Calcium - POC 1.19 mmol/L (1.12-1.27); O2 Saturation %Calculated-POC 99.9 5 (92-96); PCO2 - POC 34 mmHg (35-45); PO2 - POC 240 mmHg (80-100); Potassium - POC 3.6 mmol/L (3.6-5.0); Sodium - POC 142 mmol/L (135-145); pH - POC 7.45 (7.35-7.45)
[2023-09-26 08:20] LABS: Urine Albumin Negative (Neg - Trace); Urine Bilirubin Negative (Negative); Urine Character Clear (Clear); Urine Color Yellow; Urine Glucose Negative (Negative); Urine Ketone Negative (Negative); Urine Leukocyte Negative (Negative); Urine Nitrite Negative (Negative); Urine Occult Blood Negative (Negative); Urine Urobilinogen Negative (Neg - 1+)
[2023-09-26 10:18] LABS: B.E. - POC -0.2 mmol/L; Glucose - POC 104 mg/dl (65-99); HCO3 - POC 25 mmol/L (21-29); Hematocrit - POC 30 % PCV (42-52); Hemodilution- POC Yes; Hemoglobin Calculated - POC 10.3; Ionized Calcium - POC 1.01 mmol/L (1.12-1.27); PCO2 - POC 41 mmHg (35-45); PO2 - POC 502 mmHg (80-100); Potassium - POC 5.4 mmol/L (3.6-5.0); Sodium - POC 138 mmol/L (135-145); pH - POC 7.39 (7.35-7.45)
[2023-09-26 10:46] LABS: B.E. - POC -0.9 mmol/L; Glucose - POC 137 mg/dl (65-99); HCO3 - POC 24 mmol/L (21-29); Hematocrit - POC 32 % PCV (42-52); Hemodilution- POC Yes; Ionized Calcium - POC 1.08 mmol/L (1.12-1.27); O2 Saturation %Calculated-POC 99.9 5 (92-96); PCO2 - POC 38 mmHg (35-45); PO2 - POC 296 mmHg (80-100); Potassium - POC 5.4 mmol/L (3.6-5.0); Sodium - POC 138 mmol/L (135-145)
[2023-09-26 10:54] LABS: ACT+ - POC 730 Seconds (82-134)
--- NOTE | 2023-09-26 11:15 | CM ---
Patient in OR today for planned CABG.
Reviewed initial assessment. Pt. resides w/ spouse/dtr. in a private 2 story home (1st flr. set up), 2 [address]UCK[address]. Functionally, patient is indep. at baseline w/ ADLs, mobility without any assisted device.
Anticipated DC plan is for home w/ CT Transitional Care RN.
CM to follow.
[2023-09-26 11:24] LABS: B.E. - POC -1.3 mmol/L; Glucose - POC 156 mg/dl (65-99); HCO3 - POC 23 mmol/L (21-29); Hematocrit - POC 33 % PCV (42-52); Hemodilution- POC Yes; Hemoglobin Calculated - POC 11.3; Ionized Calcium - POC 1.08 mmol/L (1.12-1.27); PCO2 - POC 36 mmHg (35-45); PO2 - POC 362 mmHg (80-100); Potassium - POC 5.8 mmol/L (3.6-5.0); Sodium - POC 138 mmol/L (135-145); pH - POC 7.42 (7.35-7.45)
[2023-09-26 11:25] LABS: ACT+ - POC 670 Seconds (82-134)
[2023-09-26 11:48] LABS: ACT+ - POC 492 Seconds (82-134)
[2023-09-26 11:52] LABS: Glucose - POC 127 mg/dl (65-99); HCO3 - POC 25 mmol/L (21-29); Hematocrit - POC 36 % PCV (42-52); Hemodilution- POC Yes; Hemoglobin Calculated - POC 12.2; Ionized Calcium - POC 1.03 mmol/L (1.12-1.27); PCO2 - POC 43 mmHg (35-45); PO2 - POC 392 mmHg (80-100); Potassium - POC 4.3 mmol/L (3.6-5.0); Sodium - POC 144 mmol/L (135-145); pH - POC 7.36 (7.35-7.45)
[2023-09-26 12:01] LABS: ACT+ - POC 516 Seconds (82-134)
[2023-09-26] MEDS: ANCEF 10 IV ×2 (12:17→14:35)
[2023-09-26 12:38] LABS: ACT+ - POC 98 Seconds (82-134); B.E. - POC -3.9 mmol/L; Glucose - POC 112 mg/dl (65-99); HCO3 - POC 20 mmol/L (21-29); Hematocrit - POC 32 % PCV (42-52); Hemodilution- POC Yes; Hemoglobin Calculated - POC 10.9; Ionized Calcium - POC 1.38 mmol/L (1.12-1.27); O2 Saturation %Calculated-POC 98.9 5 (92-96); PCO2 - POC 33 mmHg (35-45); PO2 - POC 125 mmHg (80-100); Potassium - POC 3.8 mmol/L (3.6-5.0); Sodium - POC 142 mmol/L (135-145)
--- NOTE | 2023-09-26 13:16 | W.CVOR.SURPR ---
CVOR Surgeon Immed Pre Op
-
I have examined this patient prior to performance of the scheduled procedure.
The patient's condition is unchanged from the time of the dictated/written History and
Physical and the patient is able to undergo the scheduled procedure.
--- NOTE | 2023-09-26 13:16 | W.IMMPOSTOP ---
Addendum entered and electronically signed by Jayme Hernandez MD 09/26/23 15:07:
[id number]
Original Note:
Surgical Immed Post Op Note
-
CARDIAC SURGERY OPERATIVE NOTE:
Preoperative Dx:
Multivessel CAD
Postoperative Dx:
Same
Procedures:
1) Median sternotomy
2) Takedown of FAUSTO (pedicle)
3) Endoscopic harvest/prep of B/L LE GSV
4) CABG x 5 (FAUSTO to LAD, GSV to D, GSV to OM, sGSV to PDA and RPLB)
Surgeon:
Jayme Hernandez M.D.
Assistants:
Joe Velazquez P.A.-C.; endoscopic harvest/prep of B/L LE GSV, certified surgical first assistant throughout, closure
Yamile Ramirez P.A.-C.; [id number] chest closure
Anesthesia:
Mehdi Lynn M.D. and Rita Cunningham, C.R.N.A.
Perfusion:
Suha Hay, C.C.P.; CPB: 140min, XC: 87min
Findings:
FAUSTO was healthy appearing vessel w/ brisk blood flow, ELD 2.5mm
GSV was healthy appearing conduit w/ ELD 3.5mm
LAD was visible on epicardial surface, ELD 2.75mm
D was visible on epicardial surface, scattered calcifications, ELD 3.00mm
OM was visible on epicardial surface, ELD 2.75mm
PDA was visible on epicardial surface, ELD 2.50mm
RPLB was visible on epicardial surface, ELD 2.50mm
Excellent flow in all grafts on intraoperative U/S assessment
LVEF improved from 45-55% to 60-65%, no RWMA, no valvular heart disease
Implants:
CT x 4 (B/L pleural, inferior mediastinal, superior mediastinal)
Sternal wires x 11
Complications:
No significant complications
Upon initial cross-clamp applications, flows were maintained, but venous drainage acutely reduced w/ significant cardiac distention. Cross-clamp was removed, aorta was inspected and unremarkable. AV reassessed for presence of AI. Drainage
improved slightly w/ manipulation of venous cannula. Pt. w/ fibrillation during distension. Main PA vent placed w/ good decompression. Repeat cardiac distension occurred w/ administration of cardioplegia and briefly during fibrillation shortly
after cross-clamp removal at the end of the CPB run. CPB flows were maintained throughout. Causative etiology elusive.
Condition:
71 sinus w/ isoelectric STs. 110/69. 45/26. CVP: 20. CO/CI: 3.2/1.5 (starting was 3.1/1.4).
Levophed 5, precedex 0.7, insulin 0.5
Stable/guarded to CVICU
[2023-09-26 13:45] LABS: Glucose - Point of Care 129 mg/dl (70-99)
--- NOTE | 2023-09-26 13:49 | W.PN.UPDATE ---
Addendum entered and electronically signed by BOGDAN Mitchell 09/26/23 14:40:
Edit: Post-op EF 60-65%
Original Note:
Update Note
Progress Note Update
63 y/o male presented to [facility] on 09/20 with unstable angina and a abnormal stress test. He was found to have MVD and was taken to the CVOR on 09/25.
IV fluids: 2400
U.O.:� 700
UF:� 1300
Blood:� None
Wires:� V Wires
Inotropes:� None
Pressors:� Levo @5
Sedatives:� Precedex @ 0.7
�
NEURO: Sedated on precedex , pupils +1mm B/L
RESP: #8OT @24cm> 500/60%/26/11. Lungs clear B/L. 2 mediastinal (XXcc on arrival) and R/L pleural (XXcc on arrival) chest tubes to -20cm suction. Sanguineous drainage
CV: RRR +S1, S2, no S3, no�rub, no murmur. Dermabond to median sternotomy. RIJ w/Comer locked @ 48cm. PA 34/20; CVP 10; C.O 4.10/CI 2.1
ABD: round, soft, no BS
EXT: no edema, +2/4 DP pulses B/L, no femoral bruit, B/L LE NEGRITA wrap intact; Left radial A-line intact
: Rebolledo with clear yellow urine
�
A/P: POD #0 s/p CABG x5 (FAUSTO-LAD, SVG-OM, SVG-D, SVG to PDA and RPLB)
KATHLEEN: EF�45-50% mild LVH
- Wean and extubate as able
- Wean levo for MAPs >65
- Monitor CT and urine output
- Start ASA 81mg po extubated and tolerating Oral meds
- cont amio/afib prophylaxis
-cardiology consulted
�
# acute surgical blood loss anemia-expected
- trend CBC
�
# Hyperglycemia (A1C 5.7)
- insulin infusion x 24h
�
# Hyperlipidemia
- resume�rosuvastatin
[2023-09-26 13:54] LABS: B.E. -1.7 mmol/L; HCO3 23.7 mmol/L (21-28); Hematocrit 33.6 % (39.0-52.0); Hemoglobin 11.6 g/dL (13.0-18.0); Ionized Calcium 1.13 mMOL/L (1.15-1.33); PCO2 42 mmHg (35-48); PO2 202 mmHg (83-108); Platelet Count 129 10^3/uL (130-400); Sodium 139 mMOL/L (136-145); pH 7.36 (7.35-7.45)
[2023-09-26 14:04] LABS: INR 1.51; PT 18.3 Sec (11.4-14.6)
[2023-09-26 14:05] LABS: APTT 30.4 Sec (23.4-35.0)
--- NOTE | 2023-09-26 14:12 | W.PN.CARDCBS ---
Addendum entered and electronically signed by Fausto Youssef MD 09/26/23 14:42:
I saw and examined the patient.
The Cath Lab Technologist's note was reviewed and I agree with the note.
Comment:
GEN: No distress, intubated/sedated
HEENT: supple, anicteric, mmm
LUNGS: CTA, no wheezes/rales
CV: Reg, S1/S2, no rub, gallop
ABD: soft, BS+, NT/ND
EXT: No edema
NEURO: Gross non-focal
SKIN: sternotomy
Plan:
Overall looks stable status post CABG. EKG with new right bundle branch block. Will repeat in AM.
Remains in sinus rhythm. Wean to extubate.
Continue blood pressure support with Levophed.
Original Note:
Today's Communication / Plan
-
continue post op care
Impression / Plan
-
PCP: Dr. Torres
Shock Absorber Installer: Dr. Guillen of [facility]
Impression:
Presented with chest pain
Unstable angina
Abnormal, high risk stress test
Severe multivessel CAD by cath 09/22/23
Ischemic cardiomyopathy, EF 45%
HTN
HLD
NESS on CPAP
Echo 09/05/2023: EF 45%, mild concentric LVH, no significant valvular disease
Plan:
-s/p CABG x 5 GUERRA to LAD, GSV to D, GSV to OM, sGSV to PDA and RPLB 09/26/23
-EKG SR with new LAFB and RBBB
-on levo @6, insulin@2.6
-CI 1.8
-hgb 11.6, follow
-was on asa, imdur, toprol, crestor preop
-EF 45% by echo 09/05/23. consider addition of jasen/arb post operatively. will need repeat echo as OP post revascularization to reassess EF
-d/w nursing
HPI: Yves is a 63 year old male with PMH of HTN, HLD, and NESS on CPAP who presented to [facility] due to progressively worsening angina. He was recently seen by cardiology at [facility] and was arranged for echo and stress testing. Stress testing reportedly
was high risk with significant inferolateral ischemia noted. Due to progressive symptoms, came to ER for sooner evaluation. He reports overall symptoms started approximately 1 month ago when he began having increased chest pain with exertion.
Symptoms resolved with rest. Over time, symptoms have been brought on with lesser and lesser degrees of exertion and now he is symptomatic with minimal exertion and has mild pain at rest. Denies any associated shortness of breath, dizziness,
lightheadedness, lower extremity edema, or diaphoresis. He reports currently he has very minimal discomfort. He notes no personal prior cardiac history, however notes strong family history in his mother, father, and brother.
Progress Note - Shock Absorber Installer
Subjective
Date of Service: September 26, 2023
intubated, sedated
Objective
Labs:
Labs
Hgb 11.6 g/dL (13.0-18.0) L 09/26/23 13:43
Hct 33.6 % (39.0-52.0) L 09/26/23 13:43
Plt Count 129 10^3/uL (130-400) L 09/26/23 13:43
PT 14.5 Sec (11.4-14.6) 09/22/23 04:53
INR 1.15 09/22/23 04:53
APTT 30.6 Sec (23.4-35.0) 09/22/23 04:53
Sodium 139 mmol/L (135-145) 09/22/23 04:53
Potassium 3.6 mmol/L (3.5-5.1) 09/22/23 04:53
BUN 20 mg/dl (9-20) 09/22/23 04:53
Creatinine 0.7 mg/dL (0.7-1.3) 09/22/23 04:53
Glucose 84 mg/dl (70-99) 09/22/23 04:53
Vital Signs and I&O:
Vital Signs
Temp Pulse Resp BP Pulse Ox
97.2 F 61 20 134/92 95
09/26/23 13:00 09/26/23 04:00 09/26/23 05:00 09/26/23 05:30 09/26/23 05:01
Vital Signs
Temp Pulse Resp BP Pulse Ox
97.2 F 61 20 134/92 95
09/26/23 13:00 09/26/23 04:00 09/26/23 05:00 09/26/23 05:30 09/26/23 05:01
Intake & Output
09/24/23 09/25/23 09/26/23 09/27/23
07:59 07:59 07:59 07:59
Intake Total 360 / 360 240 / 240 240 / 240
Balance 360 / 360 240 / 240 240 / 240
Physical Exam
Physical Exam
GEN: No distress, intubated, sedated
HEENT: supple, mmm
LUNGS: CTA B/L, no wheezes/rales
CV: Reg, S1/S2, no murmur
ABD: soft, BS+, NT/ND
EXT: No cyanosis, clubbing, edema
NEURO: intubated, sedated
SKIN: Warm, pink, dry. No rash. Sternotomy dressing c/d/i. CTs in place
: kelley
[2023-09-26 14:23] LABS: Blood Urea Nitrogen 13 mg/dl (9-20); Estimated Creatinine Clearance 117 ml/min; Glucose 128 mg/dl (70-99); Magnesium 2.8 mg/dl (1.6-2.3)
[2023-09-26] MEDS: ALBUMIN 5% 250 IV ×2 (14:32→15:00)
[2023-09-26] MEDS: NEURONTIN PO ×2 (14:35→16:21)
[2023-09-26] MEDS: CRESTOR PO (14:35)
[2023-09-26] MEDS: TYLENOL PO (14:36)
[2023-09-26] MEDS: NSS 500 IV (14:36)
--- NOTE | 2023-09-26 14:36 | PTCARENOTE ---
received patient from [facility] sedated and placed on vent by GAS LINE SERVICER. Out with usual lines, no wires. SR. CTx4 placed to -20 wall suction. no airleaks/crepitus. Tubes noted to be clotty upon arrival. SIMV 14/500/+5/60% fio2. pulse ox 99%. #8 ETT @ 24 R lip.
Bowel sounds hypoactive. Rebolledo draining clear yellow urine. Pulses by doppler only. out on insulin per glycemic protocol, precedex and levo. will continue to monitor.
--- NOTE | 2023-09-26 14:37 | CON.INTV ---
Consultation
Consultation Request
Date/Time Consultation Requested: 09/26/2023
Date/Time Consultation Performed: 09/26/2023
Requesting Provider: Dr. Hernandez
Performing Provider: Dr. Westley Palmer
Reason for Consultation: Postoperative ICU care-status post coronary artery bypass
Medical History
-
History of Present Illness:
63-year-old man with past medical history significant for hypertension, hyperlipidemia, BPH, obstructive sleep apnea on CPAP. Initially presented with intermittent chest pain since June last year. Initially had abnormal stress test. Underwent
left heart catheterization 09/21/2023 cardiac catheterization showed multivessel coronary artery disease.
CT surgery was consulted and patient was deemed candidate for surgical revascularization.
Patient underwent coronary artery bypass on 09/26/[address] Hernandez.
Patient currently in the critical care unit. Sedated, on mechanical ventilation.
Chest tube is in place without air leak.
Past Medical History
Past Medical History: Other (See assessment and plan section)
Social History
Tobacco: Non-smoker
Alcohol: Occasional
Drug: None
Personal:
Living: With Family
Employment: Other (Insurance, supervisor real estate office.)
Family History
Family History: Reviewed & Not Pertinent
Allergies / Home Medications
Allergies
Allergy/AdvReac Type Severity Reaction Status Date / Time
No Known Allergies Allergy Unverified 09/21/23 10:28
Home Medications
Medication Instructions Recorded Confirmed Last Taken Type
amlodipine 5 mg tablet 5 mg PO DAILY Blood Pressure 09/21/23 09/21/23 09/21/23 History
aspirin 81 mg tablet,delayed 81 mg PO DAILY Blood Clot 09/21/23 09/21/23 09/21/23 History
release Prevention/Tx
isosorbide mononitrate 60 mg 60 mg PO DAILY Heart 09/21/23 09/21/23 09/21/23 History
tablet,extended release 24 hr Disease/Condition
metoprolol succinate 50 mg 50 mg PO DAILY Blood Pressure 09/21/23 09/21/23 09/21/23 History
tablet,extended release 24 hr
nitroglycerin 0.4 mg sublingual 0.4 mg sublingual PRN PRN chest 09/21/23 09/21/23 Unknown History
tablet pain
rosuvastatin 20 mg tablet 20 mg PO DAILY High Cholesterol 09/21/23 09/21/23 09/21/23 History
Review of Systems
-
History Source: Patient
All other systems: Negative unless noted
Vitals / Labs / Diagnostic Testing
Vital Signs
Temp Pulse Resp BP Pulse Ox
97.2 F 61 20 134/92 100
09/26/23 13:00 09/26/23 04:00 09/26/23 05:00 09/26/23 05:30 09/26/23 12:00
Lab Data
09/26/23 13:43
Laboratory Results
09/26/23
13:43
PT 18.3 H
INR 1.51
APTT 30.4
pH 7.36
pCO2 42
pO2 202 H
HCO3 23.7
O2 Delivery Level
Diagnostic Testing:
Physical Exam
-
HEENT: Normocephalic and Other (ET tube in place.)
Cardiovascular: S1/S2
Respiratory: Clear, Non-Labored Respirations and Other (Chest tubes in place, excessive bloody drainage noted.)
GI: Soft and Non Distended
Neurology: Other (ET tube in place, sedated. On mechanical ventilation.)
Skin: Warm
General: Respiratory Distress (n)
Assessment
-
Status post coronary artery bypass 09/26/2023
Postoperative mechanical ventilation
Postoperative anemia
Conditions present prior admission:
Multivessel coronary artery disease diagnosed during this admission
Hypertension
Hyperlipidemia
Elevated PSA and BPH
Obstructive sleep apnea on CPAP
Prior hernia repair
Prostate biopsy 05/2023
Assessment and plan:
He is doing well postop-currently on mechanical ventilation and appears comfortable.
ABG reviewed: Adequate oxygenation on ventilation
Continue SIMV mode with no change, PEEP was increased temporarily to 10 due to increased mediastinal tubes drainage.
Spontaneous breathing trial per protocol once sedation wears off.
Anemia noted
Mediastinal tubes with increased bloody drainage.
Follow output closely
Repeat chest x-ray: Similar to earlier. Not collections. Mediastinum appears to be similar.
FFP is being given
May need transfusion
Hemodynamics -Increasing Levophed doses. Likely due to bleeding.
Continue hemodynamic and volume support.
May need transfusion
Renal function is normal postoperatively.
Chest tube with increasing bloody drainage the last hour -no air leak.
Chest x-ray 08/28/2023 1:58 PM, tiny left apical pneumothorax otherwise relatively clear. ET tube, lines and chest tubes in place. Reviewed: With no pneumothorax or fluid collections.
Remain nothing by mouth.
Head of the bed elevation
Glycemic control per protocol
DVT prophylaxis when safe from the surgical perspective.
Critical care statement: A total of 31 minutes of critical care time was provided for this patient today. This includes management of unstable vital signs, evaluation of the patient at bedside, reviewing the patient's pertinent medical records
including ventilator settings, arterial blood gases, radiographs, microbiology, laboratory evaluations and discussion with primary team, critical care nursing, and respiratory therapy.
[2023-09-26 14:39] LABS: ACT+ - POC > 1003 Seconds (82-134)
[2023-09-26 14:39] LABS: ACT+ - POC > 1003 Seconds (82-134)
[2023-09-26] MEDS: CALCIUM CHLORIDE 10% SYRINGE 50 ML IV ×2 (14:39→21:30)
[2023-09-26] MEDS: CALCIUM CHLORIDE 10% SYRINGE 50 MG IV ×2 (14:39→21:30)
[2023-09-26] MEDS: DILAUDID 0.25 MG IV (14:53)
--- NOTE | 2023-09-26 15:00 | PTCARENOTE ---
increased bleeding from med chest tubes. DIAPHRAGM BUILDER notifed. Increasing need for levo. weaning up to [address] Hernandez called to bedside.
[2023-09-26] MEDS: NORVASC PO (15:02)
[2023-09-26] MEDS: ASPIR LOW (ENTERIC COATED) PO (15:02)
[2023-09-26] MEDS: TOPROL XL PO (15:02)
[2023-09-26 15:06] LABS: Glucose - Point of Care 171 mg/dl (70-99)
[2023-09-26 15:15] LABS: B.E. -4.4 mmol/L; Ionized Calcium 1.17 mMOL/L (1.15-1.33); O2 Saturation % 99.3 % (94-98); PCO2 39 mmHg (35-48); PO2 191 mmHg (83-108); Potassium 4.2 mMOL/L (3.5-5.1); Sodium 137 mMOL/L (136-145); pH 7.34 (7.35-7.45)
[2023-09-26] MEDS: PRECEDEX 100 IV ×2 (16:00→21:00)
[2023-09-26] MEDS: PACERONE PO (16:21)
[2023-09-26 16:40] LABS: Glucose - Point of Care 143 mg/dl (70-99)
--- NOTE | 2023-09-26 17:05 | PTCARENOTE ---
1 unit plt 2 FFP 500ml albumin given. max dose levo [address] armendariz remains at beside.
[2023-09-26 17:19] LABS: Glucose - Point of Care 137 mg/dl (70-99)
[2023-09-26 18:18] LABS: Glucose - Point of Care 135 mg/dl (70-99)
[2023-09-26 18:22] LABS: Hematocrit 21.9 % (39.0-52.0); Hemoglobin 7.7 g/dL (13.0-18.0); Platelet Count 129 10^3/uL (130-400)
[2023-09-26] MEDS: DILAUDID 0.5 MG IV (18:33)
[2023-09-26] MEDS: LEVOPHED 250 IV (18:43)
--- NOTE | 2023-09-26 18:45 | PTCARENOTE ---
bleeding slowed down. weaning levo back down. updated. will continue to monitor.
[2023-09-26] MEDS: ANCEF 5 IV (19:51)
[2023-09-26] MEDS: SENOKOT-S PO (19:55)
--- NOTE | 2023-09-26 20:00 | PTCARENOTE ---
PT on vent agitated when awake, precidex, Levo, insulin. 1st of 2 PRBC currently running, CTx4 draining appropriately, all surgical incisions CDI, see worklsit for detailed assessment
[2023-09-26 20:27] LABS: Glucose - Point of Care 91 mg/dl (70-99)
[2023-09-26 20:29] LABS: Mixed Venous O2 Saturation 48.1 %
[2023-09-26 20:36] LABS: B.E. -2.4 mmol/L; HCO3 22.5 mmol/L (21-28); Ionized Calcium 1.14 mMOL/L (1.15-1.33); O2 Saturation % 99.6 % (94-98); PCO2 38 mmHg (35-48); PO2 161 mmHg (83-108); Potassium 4.2 mMOL/L (3.5-5.1); pH 7.38 (7.35-7.45)
[2023-09-26 22:08] LABS: Mixed Venous O2 Saturation 48.8 %
[2023-09-26 22:36] LABS: Glucose - Point of Care 80 mg/dl (70-99)
[2023-09-27] VITALS (29 sets, daily range): BP systolic 71–134; BP diastolic 47–71; BMI 29.4
--- NOTE | 2023-09-27 | RESPNOTE ---
PT is awake and alert enough to attempt a CPAP weaning trial at this time. He is on CPAP/PS 5/+% and is tolerating well. His Tidal volumes and vitals are stable and he seems to be breathing adequately on his own. An ABG will be collected in one
half hours time and hopefully extubation will follow. HR-100/RR-18/SPO2-100%.
[2023-09-27 00:33] LABS: Glucose - Point of Care 87 mg/dl (70-99)
[2023-09-27 00:40] LABS: B.E. -2.3 mmol/L; HCO3 22.4 mmol/L (21-28); Ionized Calcium 1.25 mMOL/L (1.15-1.33); O2 Saturation % 98.9 % (94-98); PCO2 37 mmHg (35-48); PO2 144 mmHg (83-108); pH 7.39 (7.35-7.45)
[2023-09-27 00:41] LABS: Hematocrit 26.3 % (39.0-52.0); Hemoglobin 9.2 g/dL (13.0-18.0); Platelet Count 72 10^3/uL (130-400)
[2023-09-27 00:43] LABS: Mixed Venous O2 Saturation 68.1 %
[2023-09-27 00:45] LABS: O2 Therapy CPAP
[2023-09-27 00:54] LABS: APTT 29.6 Sec (23.4-35.0); INR 1.41; PT 17.4 Sec (11.4-14.6)
--- NOTE | 2023-09-27 01:00 | PTCARENOTE ---
0100 - PT extubated to 6L nc O2 saturation 95% and up. AAOx4
[2023-09-27] MEDS: DILAUDID 0.5 MG IV ×4 (01:12→21:11)
[2023-09-27] MEDS: TYLENOL PO ×2 (02:09→08:11)
[2023-09-27] MEDS: NEURONTIN PO (02:09)
[2023-09-27] MEDS: PACERONE PO (02:09)
[2023-09-27] MEDS: OFIRMEV 100 IV ×2 (02:10→08:11)
[2023-09-27 02:36] LABS: Glucose - Point of Care 84 mg/dl (70-99)
[2023-09-27 04:20] LABS: Glucose - Point of Care 78 mg/dl (70-99)
[2023-09-27 04:31] LABS: Mixed Venous O2 Saturation 98.8 %
[2023-09-27 04:35] LABS: Ionized Calcium 1.18 mMOL/L (1.15-1.33)
[2023-09-27] MEDS: ANCEF 5 IV ×2 (04:36→10:55)
[2023-09-27 04:44] LABS: Hematocrit 24.6 % (39.0-52.0); Hemoglobin 8.6 g/dL (13.0-18.0); Mean Corpuscular Hgb 29.3 pg (27.0-31.0); Mean Corpuscular Volume 83.7 fL (80.0-94.0); Mean Platelet Volume 11.7 fL (7.4-10.4); Platelet Count 71 10^3/uL (130-400); Red Blood Cell Count 2.94 10^6/uL (4.70-6.10); Red Cell Dist. Width 13.4 % (11.5-14.5); White Blood Cell Count 10.2 10^3/uL (4.8-10.8)
[2023-09-27 05:11] LABS: Mixed Venous O2 Saturation 54.8 %
[2023-09-27 05:12] LABS: Blood Urea Nitrogen 20 mg/dl (9-20); Calcium 7.9 mg/dl (8.4-10.2); Carbon Dioxide 20 mmol/L (22-30); Chloride 110 mmol/L (98-107); Estimated Creatinine Clearance 102 ml/min; Glucose 97 mg/dl (70-99); Magnesium 2.2 mg/dl (1.6-2.3); Potassium 4.2 mmol/L (3.5-5.1); Sodium 139 mmol/L (135-145); eGFR > 60.00
[2023-09-27] MEDS: CALCIUM CHLORIDE 10% SYRINGE 60 MG IV (05:49)
--- NOTE | 2023-09-27 06:08 | W.PN.CT ---
Today's Communication / Plan
-
-pod #1
-got 2 pRBCs, 2 FFPs, 1 platelet for blood loss d/t coagulopathy- improved
-extubated uneventfully at 1 am
-transient RBBB, LAFB postop - resolved
-Echo today
-CI 2.43, CO 5.17, sVO2 55. Drips: Dobut 1.5, Levo 3, Insulin
-CT output: 2 meds 250/750, 2 pleur 30/220 in 12/24 hrs
-wean off drips and deline
-follow platelets- 71K
-follow h/h- 8.6/24.6 today (hg 7.7 prior to transfusion)
-d/c insulin
-start CPAP for NESS
-current meds (ASA, Plavix, Crestor, Amio). Hold BB while on Dobut. Hold Plavix if platelets low
-consider diuresis
-encourage IS, OOB
Assessment / Plan
-
- mv-CAD CAD - s/p CABG x 5 (FAUSTO to LAD, GSV to D, GSV to OM, sGSV to PDA and RPLB) on 09/26/23, pod #1
- LVEF improved from 45-55% to 60-65%, no RWMA, no valvular heart disease
- HTN/HLD
- NESS, on CPAP
- BPH
- Elevated PSA
- Non-smoker
- Claustrophobia
- Acute postop blood loss anemia - s/p 2 pRBCs
- Acute postop coagulopathy - s/p 2 FFPs
- Acute postop thrombocytopenia - s/p 1 unit platelet
- Acute postop hypovolemia with subsequent hypervolemia
- Acute postop atelectasis
- Acute transient postop RBBB, LAFB - resolved
Discussed patient care with: Nursing and Care Team
Subjective
Procedure
- s/p CABG x 5 (FAUSTO to LAD, GSV to D, GSV to OM, sGSV to PDA and RPLB) on 09/26/23
-
Date of Service: September 27, 2023
Objective Data
-
PT 17.4 Sec (11.4-14.6) H 09/27/23 00:30
INR 1.41 09/27/23 00:30
APTT 29.6 Sec (23.4-35.0) 09/27/23 00:30
Vital Signs
Vital Signs
Temp Pulse Resp BP Pulse Ox
99.6 F 64 14 134/92 96
09/26/23 20:07 09/26/23 21:00 09/26/23 21:00 09/26/23 05:30 09/26/23 19:33
CT Intake/Output/Weight
09/26/23 09/26/23 09/27/23
06:59 18:59 06:59
Intake Total 240 / 240 1665.5 / 1915.2 249.7 / 1915.2
Output Total 1160 / 1655 495 / 1655
Balance 240 / 240 505.5 / 260.2 -245.3 / 260.2
SaO2: 96
Physical Exam
-
General: Awake and AOx3
Cardiovascular: Regular rate & rhythm, No Murmurs and Rub
Respiratory: Decreased Breath Sounds
Sternum: Stable
Incision: Clean, Dry and Intact
Extremities: No Edema (1+ PT b/l, difficult to feel DPs b/l)
Data Reviewed
-
Lab Results: Results Reviewed
Medications: Active Meds Reviewed
Chest X-Ray: Report Reviewed and Image Reviewed
ECG: Report Reviewed and Image Reviewed
[2023-09-27 06:40] LABS: Glucose - Point of Care 58 mg/dl (70-99)
[2023-09-27] MEDS: BACTROBAN 2% OINTMENT 1 APPLIC NASAL ×2 (07:51→20:57)
[2023-09-27] MEDS: FLUSH (NSS) 1 FLUSH IV (07:51)
[2023-09-27] MEDS: LIDOCAINE 4% PATCH 1 PATCH TOPICAL (07:51)
[2023-09-27] MEDS: LOW STRENGTH ASPIRIN PO (07:52)
--- NOTE | 2023-09-27 08:00 | PTCARENOTE ---
Assumed care of patient. Walking rounds completed with previous RN. Pt assessed while he was lying in bed. Pt alert and oriented x4. Pt denies pain at rest, but with any movement, he moans/appears to be in pain-see MAR for medication administration.
BUSTOS with equal strength. NSR on tele with rates in the 90s-100s. BP supported with levophed. CVP 6. PA pressures 20s/10s. CI 2.46. Dobutamine infusing at 1.5mcg/kg/min. Bilateral radial pulses palpable. Bilateral DPPT pulses present via doppler. POX
98% on 2L NC. Lungs diminished in the bases. No cough noted. IS [id number] achieved. Mediastinal x2 chest tubes y-sited to 1 atrium to -20cm suction draining red fluid. Right and Left pleural chest tubes y-sited to 1 atrium to -20cm
suction draining red fluid. No air leaks, tidaling, crepitus noted. Abdomen soft, round, nontender. Hypoactive BS. Tolerating sips of water with pills. Rebolledo catheter intact draining clear yellow urine. Catheter care completed. Sternal incision
covered with Aquacel-CDI. Chest tube dressing covered. Right and left groin approximated with skin glue intact. Right and left SVG sites approximated with skin glue intact, NEGRITA intact. Right IJ cordis and swan floated to 47cm. Right AC 20g PIV
intact infusing insulin gtt per critical care glycemic protocol. Right radial haley intact. All lines flushed, leveled, and zeroed. See MAR for medication administration. See worklist for complete nursing assessment. Plan of care reviewed and pt in
agreement.
[2023-09-27 08:04] LABS: Glucose - Point of Care 113 mg/dl (70-99)
[2023-09-27 08:04] LABS: Glucose - Point of Care 101 mg/dl (70-99)
[2023-09-27 08:20] LABS: Mixed Venous O2 Saturation 61.9 %
[2023-09-27] MEDS: FLEXERIL 5 MG PO ×2 (08:27→16:36)
[2023-09-27] MEDS: LOW STRENGTH ASPIRIN 81 MG PO (08:27)
[2023-09-27] MEDS: PROTONIX 40 MG PO (08:27)
[2023-09-27] MEDS: CRESTOR 20 MG PO (08:27)
[2023-09-27] MEDS: MAGNESIUM OXIDE PO ×2 (08:28→08:54)
[2023-09-27] MEDS: SENOKOT-S 1 TABLET PO ×2 (08:28→20:57)
[2023-09-27] MEDS: NEURONTIN 100 MG PO ×3 (08:28→20:58)
[2023-09-27] MEDS: PACERONE 200 MG PO ×3 (08:53→20:58)
[2023-09-27 09:01] LABS: Glucose - Point of Care 127 mg/dl (70-99)
[2023-09-27] MEDS: NSS IV (09:15)
--- NOTE | 2023-09-27 09:21 | W.PN.CARDCBS ---
Addendum entered and electronically signed by Nguyễn Levy MD 09/27/23 11:18:
I saw and examined the patient.
The Hvac Sales Representative's note was reviewed and I agree with the note.
Comment: Briefly, 63-year-old man past medical history of ischemic heart myopathy in the setting of multivessel CAD who underwent CABG x 5
Currently recovering in the CVICU where he is requiring inotrope and pressor support with dobutamine and Levophed
Warm and well-perfused on exam
Filling pressures are reasonable based on invasive hemodynamics
Maintaining sinus rhythm on telemetry
Agree with current cardiac meds
We will continue to follow
Original Note:
Today's Communication / Plan
-
follow hgb/plts
wean pressors as able
check echo
continue post op care
Impression / Plan
-
PCP: Dr. Torres
Motorcycle Designer: Dr. Guillen [facility]
Impression:
Presented with chest pain
Unstable angina
Abnormal, high risk stress test
Severe multivessel CAD by cath 09/22/23
s/p CABG x 5 GUERRA to LAD, GSV to D, GSV to OM, sGSV to PDA and RPLB 09/26/23
Ischemic cardiomyopathy, EF 45%
HTN
HLD
NESS on CPAP
Echo 09/05/2023: EF 45%, mild concentric LVH, no significant valvular disease
Plan:
-s/p CABG x 5 GUERRA to LAD, GSV to D, GSV to OM, sGSV to PDA and RPLB 09/26/23. continue post op care
-hgb 8.6/plts 71K. s/p 2 U PRBCs, 2 FFP, 1 plts
-currently on levo @4, dobut @1.5. wean as able
-CI 2.46
-wean supp O2
-EKG stable, bifascicular block no longer present. remains in SR upon review of tele.
-for echo today
-was on asa, imdur, toprol, crestor preop
-EF 45% by echo 09/05/23. consider addition of jasen/arb post operatively.
-d/w nursing
HPI: Yves is a 63 year old male with PMH of HTN, HLD, and NESS on CPAP who presented to [facility] due to progressively worsening angina. He was recently seen by cardiology at [facility] and was arranged for echo and stress testing. Stress testing reportedly
was high risk with significant inferolateral ischemia noted. Due to progressive symptoms, came to ER for sooner evaluation. He reports overall symptoms started approximately 1 month ago when he began having increased chest pain with exertion.
Symptoms resolved with rest. Over time, symptoms have been brought on with lesser and lesser degrees of exertion and now he is symptomatic with minimal exertion and has mild pain at rest. Denies any associated shortness of breath, dizziness,
lightheadedness, lower extremity edema, or diaphoresis. He reports currently he has very minimal discomfort. He notes no personal prior cardiac history, however notes strong family history in his mother, father, and brother.
Progress Note - Motorcycle Designer
Subjective
Date of Service: September 27, 2023
Reports no pain as long as he does not move
Objective
Labs:
09/27/23 04:20
09/27/23 04:20
Labs
Hgb 8.6 g/dL (13.0-18.0) L 09/27/23 04:20
Hct 24.6 % (39.0-52.0) L 09/27/23 04:20
Plt Count 71 10^3/uL (130-400) L 09/27/23 04:20
PT 17.4 Sec (11.4-14.6) H 09/27/23 00:30
INR 1.41 09/27/23 00:30
APTT 29.6 Sec (23.4-35.0) 09/27/23 00:30
Sodium 139 mmol/L (135-145) 09/27/23 04:20
Potassium 4.2 mmol/L (3.5-5.1) 09/27/23 04:20
BUN 20 mg/dl (9-20) 09/27/23 04:20
Creatinine 0.8 mg/dL (0.7-1.3) 09/27/23 04:20
Glucose 97 mg/dl (70-99) 09/27/23 04:20
Vital Signs and I&O:
Vital Signs
Temp Pulse Resp BP Pulse Ox
99.8 F 92 19 92/47 97
09/27/23 09:01 09/27/23 09:01 09/27/23 09:01 09/27/23 09:01 09/27/23 09:17
Vital Signs
Temp Pulse Resp BP Pulse Ox
99.8 F 92 19 92/47 97
09/27/23 09:01 09/27/23 09:01 09/27/23 09:01 09/27/23 09:01 09/27/23 09:17
Intake & Output
09/25/23 09/26/23 09/27/23 09/28/23
07:59 07:59 07:59 07:59
Intake Total 240 / 240 240 / 240 2005.4 / 2042.1 175.7 / 175.7
Output Total 2029 85 / 85
Balance 240 / 240 240 / 240 -23.6 / -31.9 90.7 / 90.7
Physical Exam
Physical Exam
GEN: No distress, awake, alert, oriented x3. on supp O2
HEENT: supple, anicteric, mmm, eomi
LUNGS: decreased BS at bases, no wheezes
CV: Reg, S1/S2, no murmur
ABD: soft, hypoactive BS
EXT: No cyanosis, clubbing. trace edema of B/L LE
NEURO: Gross non-focal
SKIN: Warm, pink, dry. No rash. Sternotomy dressing c/d/i. CTs in place
--- NOTE | 2023-09-27 09:46 | CARDSERVLU ---
Echocardiogram with Lumason completed after protocol screening completed. Allergies verified.
Patent IV site: _Right arm median antecubital site clear____
IV site flushed with 0.9% NaCl pre and post administration.
Diluted bolus method utilized to enhance visualization of ventricular mccann.
Total volume given: __4__ mL
Patient tolerated all procedures well without complications.
[2023-09-27 09:57] LABS: Glucose - Point of Care 122 mg/dl (70-99)
[2023-09-27] MEDS: ROXICODONE 5 MG PO (10:54)
[2023-09-27 11:01] LABS: Glucose - Point of Care 116 mg/dl (70-99)
--- NOTE | 2023-09-27 11:36 | CM ---
CM following for DC planning needs.
Patient POD #1 CABG x5.
Met w/ patient at bedside. Pt. reports that he is feeling well.
DC plan reviewed and remains home w/ CT Transitional Care RN.
Will follow.
--- NOTE | 2023-09-27 12:00 | PTCARENOTE ---
Pt reassessed. Remains A&Ox4. Pt states his pain is 2/10, but continues to moan with every movement, even feeding himself. BP supported with levophed @6mcg/min. CI 2.61. PAs 30/10s. CVP 10. 250mL albumin infusing per orders. NSR with rates in the
80s. POX 94% on 1L NC. Rebolledo catheter draining adequate UO. CT output WNL. All lines remain intact. Denies nausea after eating clear liquid tray. Surgical sites stable.
[2023-09-27] MEDS: ALBUMIN 5% 250 IV ×2 (12:05→14:39)
[2023-09-27 12:13] LABS: Glucose - Point of Care 131 mg/dl (70-99)
[2023-09-27] MEDS: LEVOPHED 250 IV (12:58)
[2023-09-27] MEDS: TYLENOL 1000 MG PO ×2 (13:52→20:57)
--- NOTE | 2023-09-27 13:52 | W.PN.ANS.POP ---
Anesthesia Post Operative
- Anesthesia Post Op Note
Vital Signs Stable-See Nursing Note: Yes
Airway Patent: Yes
Adequate Pain Control: Yes
Change in Mental Status: No
Current Postoperative Nausea & Vomiting: No
Anesthesia Complications: No
General Anesthetic Recall: No
Unplanned Admission: No
Post Op Hydration Adequate: Yes
[2023-09-27 13:58] LABS: Glucose - Point of Care 117 mg/dl (70-99)
--- NOTE | 2023-09-27 14:39 | W.PN.INTV ---
Today's Communication / Plan
Recommendations
Continue postoperative care
Follow chest tube output
Daily chest x-ray
Repeat H&H
Increase activity as able
Sign off
Assessment
-
Status post coronary artery bypass 09/26/2023
Postoperative mechanical ventilation
Postoperative anemia
Conditions present prior admission:
Multivessel coronary artery disease diagnosed during this admission
Hypertension
Hyperlipidemia
Elevated PSA and BPH
Obstructive sleep apnea on CPAP
Prior hernia repair
Prostate biopsy 05/2023
Assessment and plan:
09/27/2023 knowledge analyst.
Doing well.
Hemodynamics-acceptable, vasopressors been weaned off.
Increase activity as tolerated
Encourage incentive spirometry
Analgesia with as needed narcotics.. Monitor respiratory status closely
-
Anemia noted: Patient received some transfusions.
Follow H&H
No acute bleeding, coagulopathy has been corrected.
-
Chest tube with increasing bloody drainage the last hour -no air leak.
Chest x-ray reviewed: No collections. No significant pneumothorax per chest in place
Advance diet as tolerated
Head of the bed elevation
Glycemic control per protocol
Nocturnal CPAP for obstructive sleep apnea.
DVT prophylaxis when safe from the surgical perspective.
No additional recommendations, critical care team will sign off.
Please call pulmonary if any respiratory issues arise.
Subjective Dataa
Subjective Data
Date of Service:
Date of Service: September 27, 2023
Chief Complaint: Clinical Nurse Manager Follow Up (Status post coronary artery bypass)
Subjective:
Overnight, extubated.
Coagulopathy improved after blood product transfusion.
Patient states that the pain is controlled.
Denies any cough or phlegm production.
Review of Systems
General: Fever (n)
Cardiopulmonary: Dyspnea (none)
GI: Abdominal Pain (n) and Nausea (n)
Neuro: Headache (n)
Objective Data
Data Reviewed
Vital Signs / I&O / Oxygen:
Vital Signs
Temp Pulse Resp BP Pulse Ox
100.0 F 91 21 104/70 96
09/27/23 14:00 09/27/23 14:00 09/27/23 14:00 09/27/23 14:00 09/27/23 14:00
Intake and Output
09/26/23 09/27/23 09/28/23
06:59 06:59 06:59
Intake Total 240 / 240 1973.7 / 2006.4 643.7 / 643.7
Output Total 2009 340 / 340
Balance 240 / 240 -36.3 / -23.6 303.7 / 303.7
SaO2 [SIMV] 100
SaO2 96
Nasal Cannula flow liters per 1
minute
Physical Exam
General: Respiratory Distress (n)
HEENT: Normocephalic (n)
Cardiovascular: S1-S2 (n)
Respiratory: Clear
GI: Soft and Non Distended
Neurology: Awake, Alert, Oriented and No Motor Deficits
Skin: Warm
Labs/Micro/Reports
Lab Data
09/27/23 04:20
09/27/23 04:20
Laboratory Results
09/26/23 09/26/23 09/27/23
15:05 20:17 00:30
PT 17.4 H
INR 1.41
APTT 29.6
pH 7.34 L 7.38 7.39
pCO2 39 38 37
pO2 191 H 161 H 144 H
HCO3 21.0 22.5 22.4
O2 Delivery Level Cpap
--- NOTE | 2023-09-27 15:30 | PTCARENOTE ---
Right IJ swan d/c per orders. Pt tolerated. New dressing applied.
[2023-09-27] MEDS: ULTRAM 50 MG PO (16:00)
--- NOTE | 2023-09-27 16:00 | PTCARENOTE ---
Pt reassessed. NSR on tele with rates in the 80s. BP supported with levo. BP labile with any movement. POX 95% on 4L NC. Surgical sites stable. CT output WNL. Pt states pain is 1-2/10, however, CPOT is 6. CT SIGNAL INTELLIGENCE/ELECTRONIC WARFARE made aware and stat dose ultram
administered. Cordis, PIV, and haley remain in place.
[2023-09-27] MEDS: FEOSOL 325 MG PO (20:57)
[2023-09-28] VITALS (27 sets, daily range): BP systolic 85–140; BP diastolic 43–81; PULSE 84; O2SAT 96; BMI 29.5
[2023-09-28] MEDS: DILAUDID 0.5 MG IV ×2 (01:24→05:54)
[2023-09-28] MEDS: FLEXERIL 5 MG PO (01:24)
--- NOTE | 2023-09-28 04:39 | W.PN.CT ---
Today's Communication / Plan
-
-pod #2
-got 2 pRBCs, 2 FFPs, 1 platelet for blood loss d/t coagulopathy - improved
-HH this am 6.4/19.1, plt 70s
-transient RBBB, LAFB postop - resolved
-Levo on and off @ 1 mcg, currently at [address] mcg
-CT output: 2 meds 60/180, 2 pleur 15/40 in 12/24 hrs
-follow platelets
- CPP for NESS
-current meds (ASA, Plavix, Crestor, Amio). Hold BB while on levo. Hold Plavix if platelets low
-encourage IS, OOB
Assessment / Plan
-
- mv-CAD CAD - s/p CABG x 5 (FAUSTO to LAD, GSV to D, GSV to OM, sGSV to PDA and RPLB) on 09/26/23, pod #2
- LVEF improved from 45-55% to 60-65%, no RWMA, no valvular heart disease
- HTN/HLD
- NESS, on CPAP
- BPH
- Elevated PSA
- Non-smoker
- Claustrophobia
- Acute postop blood loss anemia - s/p 2 pRBCs
- Acute postop coagulopathy - s/p 2 FFPs
- Acute postop thrombocytopenia - s/p 1 unit platelet
- Acute postop hypovolemia with subsequent hypervolemia
- Acute postop atelectasis
- Acute transient postop RBBB, LAFB - resolved
Subjective
Procedure
- s/p CABG x 5 (FAUSTO to LAD, GSV to D, GSV to OM, sGSV to PDA and RPLB) on 09/26/23
-
Date of Service: September 28, 2023
No overnight events.
Objective Data
-
PT 17.4 Sec (11.4-14.6) H 09/27/23 00:30
INR 1.41 09/27/23 00:30
APTT 29.6 Sec (23.4-35.0) 09/27/23 00:30
Vital Signs
Vital Signs
Temp Pulse Resp BP Pulse Ox
98.3 F 88 32 113/61 95
09/28/23 00:00 09/28/23 00:00 09/28/23 00:00 09/28/23 00:00 09/27/23 19:00
CT Intake/Output/Weight
09/27/23 09/27/23 09/28/23
06:59 18:59 06:59
Intake Total 308.2 / 2006.4 1188.8 / 1236.4 47.6 / 1236.4
Output Total 850 / 2030 525 / 800 275 / 800
Balance -541.8 / -23.6 663.8 / 436.4 -227.4 / 436.4
SaO2: 95
Physical Exam
-
General: Awake, Oriented and AOx3
Cardiovascular: Regular rate & rhythm and No Murmurs
Respiratory: Clear and Equal
Sternum: Stable
Incision: Clean, Dry and Intact
Extremities: No Edema
Data Reviewed
-
Lab Results: Results Reviewed
Medications: Active Meds Reviewed
Chest X-Ray: Report Reviewed
ECG: Report Reviewed
[2023-09-28 05:14] LABS: Mean Corp Hgb Conc. 33.5 g/dL (33.0-37.0); Mean Corpuscular Hgb 28.6 pg (27.0-31.0); Mean Corpuscular Volume 85.3 fL (80.0-94.0); Mean Platelet Volume 12.1 fL (7.4-10.4); Platelet Count 70 10^3/uL (130-400); Red Blood Cell Count 2.24 10^6/uL (4.70-6.10); Red Cell Dist. Width 14.4 % (11.5-14.5); White Blood Cell Count 12.1 10^3/uL (4.8-10.8)
[2023-09-28 05:34] LABS: Blood Urea Nitrogen 33 mg/dl (9-20); Calcium 8.1 mg/dl (8.4-10.2); Carbon Dioxide 27 mmol/L (22-30); Chloride 106 mmol/L (98-107); Estimated Creatinine Clearance 91 ml/min; Glucose 108 mg/dl (70-99); Hematocrit 19.1 % (39.0-52.0); Hemoglobin 6.4 g/dL (13.0-18.0); Magnesium 2.3 mg/dl (1.6-2.3); Sodium 138 mmol/L (135-145); eGFR > 60.00
[2023-09-28] MEDS: TORADOL 15 MG IV (06:43)
[2023-09-28] MEDS: TYLENOL 1000 MG PO ×3 (06:43→22:32)
--- NOTE | 2023-09-28 08:27 | PTCARENOTE ---
assumed care of pt from previous shift RN, Pt is AAOX4, sitting OOB in recliner. sinus rhythm- sinus tachycardia on tele w HR 80-110, see VS flowsheet for BP trends, right radial haley leveled and zeroed. Right IJ cordis w KVO infusing, PIV flushes
easily. Mediastinal and pleural CTs w dark red drainage, kelley catheter draining yellow. Received pt w PRBC transfusing, unit completed and second unit of PRBC initiated as ordered. pt denies pain at this time. Plan of care reviewed and questions
encouraged.
--- NOTE | 2023-09-28 10:20 | W.PN.CARDCBS ---
Addendum entered and electronically signed by Billy Hoskins MD 09/28/23 11:30:
I saw and examined the patient.
The RESEARCH AND DEVELOPMENT SPECIALIST or PA's note was reviewed and I agree with the note.
Comment: General: Well developed, well nourished in NAD.
Neck: Supple, no JVD, HJR, carotids +2 B/L, no bruits bilaterally.
Heart: Non displaced PMI, RRR, no murmurs, No S3, S4, no rubs.
Lungs: Scattered rhonchi
Sternal dressings noted
Extremities: No clubbing, cyanosis or edema bilaterally.
Neuro: Grossly nonfocal, awake, alert and oriented x3.
He is very anemic and is getting transfused. EKG with possible mild lateral ST elevation. Remains in sinus rhythm. Continue postop care.
Original Note:
Today's Communication / Plan
-
continue post op care
follow hgb
repeat EKG
Impression / Plan
-
PCP: Dr. Torres
Logistics Engineering Manager: Dr. Guillen of [facility]
Impression:
Presented with chest pain
Unstable angina
Abnormal, high risk stress test
Severe multivessel CAD by cath 09/22/23
s/p CABG x 5 GUERRA to LAD, GSV to D, GSV to OM, sGSV to PDA and RPLB 09/26/23
Ischemic cardiomyopathy, EF 45%
HTN
HLD
NESS on CPAP
Echo 09/05/2023: EF 45%, mild concentric LVH, no significant valvular disease
ECHO 09/27/23: Technically difficult study, EF 65 to 70%, normal pericardium without effusion
Plan:
-s/p CABG x 5 GUERRA to LAD, GSV to D, GSV to OM, sGSV to PDA and RPLB 09/26/23. continue post op care
-hgb 6.4/plts 70K. received 2 additional units of PRBCs today for total of 4 PRBCs, 2 FFP, 1 plts.
-off pressors
-echo 09/26 with preserved EF and normal pericardium without effusion, improved EF compared to preop
-Repeat EKG today. resolved post op LAFB and RBBB
-encouraged IS
-was on asa, imdur, toprol, crestor preop
-d/w nursing
HPI: Yves is a 63 year old male with PMH of HTN, HLD, and NESS on CPAP who presented to [facility] due to progressively worsening angina. He was recently seen by cardiology at [facility] and was arranged for echo and stress testing. Stress testing reportedly
was high risk with significant inferolateral ischemia noted. Due to progressive symptoms, came to ER for sooner evaluation. He reports overall symptoms started approximately 1 month ago when he began having increased chest pain with exertion.
Symptoms resolved with rest. Over time, symptoms have been brought on with lesser and lesser degrees of exertion and now he is symptomatic with minimal exertion and has mild pain at rest. Denies any associated shortness of breath, dizziness,
lightheadedness, lower extremity edema, or diaphoresis. He reports currently he has very minimal discomfort. He notes no personal prior cardiac history, however notes strong family history in his mother, father, and brother.
Progress Note - Logistics Engineering Manager
Subjective
Date of Service: September 28, 2023
s/p 2 U PRBCs today. feels fatigued
Objective
Labs:
09/28/23 04:59
09/28/23 04:59
Labs
Hgb 6.4 g/dL (13.0-18.0) L* D 09/28/23 04:59
Hct 19.1 % (39.0-52.0) L* 09/28/23 04:59
Plt Count 70 10^3/uL (130-400) L 09/28/23 04:59
PT 17.4 Sec (11.4-14.6) H 09/27/23 00:30
INR 1.41 09/27/23 00:30
APTT 29.6 Sec (23.4-35.0) 09/27/23 00:30
Sodium 138 mmol/L (135-145) 09/28/23 04:59
Potassium 4.0 mmol/L (3.5-5.1) 09/28/23 04:59
BUN 33 mg/dl (9-20) H 09/28/23 04:59
Creatinine 0.9 mg/dL (0.7-1.3) 09/28/23 04:59
Glucose 108 mg/dl (70-99) H 09/28/23 04:59
Vital Signs and I&O:
Vital Signs
Temp Pulse Resp BP Pulse Ox
99.1 F 89 16 102/62 96
09/28/23 08:00 09/28/23 08:15 09/28/23 08:15 09/28/23 08:00 09/28/23 08:00
Vital Signs
Temp Pulse Resp BP Pulse Ox
99.1 F 89 16 102/62 96
09/28/23 08:00 09/28/23 08:15 09/28/23 08:15 09/28/23 08:00 09/28/23 08:00
Intake & Output
09/26/23 09/27/23 09/28/23 09/29/23
07:59 07:59 07:59 07:59
Intake Total 240 / 240 / 2042.1 1213.7 / 1223.7
Output Total 2029 1180 / 1370 190 / 190
Balance 240 / 240 -23.6 / -31.9 33.7 / -146.3 -180 / -180
Physical Exam
Physical Exam
GEN: No distress, awake, alert, oriented x3. sitting in chair
HEENT: supple, anicteric, mmm, eomi
LUNGS: decreased BS B/L, no wheezes
CV: Reg, S1/S2, no murmur
ABD: soft, BS+, NT/ND
EXT: No cyanosis, clubbing. 1+ edema of B/L LE
NEURO: Gross non-focal
SKIN: Warm, pink, dry. No rash. Sternotomy dressing c/d/i. CTs in place
[2023-09-28] MEDS: LASIX 40 MG IV (10:55)
[2023-09-28] MEDS: LOW STRENGTH ASPIRIN 81 MG PO (10:56)
[2023-09-28] MEDS: PACERONE 200 MG PO ×3 (10:56→22:31)
[2023-09-28] MEDS: VITAMIN C 500 MG PO (10:56)
[2023-09-28] MEDS: LIDOCAINE 4% PATCH 1 PATCH TOPICAL (10:56)
[2023-09-28] MEDS: SENOKOT-S 1 TABLET PO ×2 (10:56→20:56)
[2023-09-28] MEDS: CRESTOR 20 MG PO (10:56)
[2023-09-28] MEDS: FEOSOL 325 MG PO ×2 (10:56→20:55)
[2023-09-28] MEDS: PROTONIX 40 MG PO (10:56)
[2023-09-28] MEDS: NEURONTIN 100 MG PO ×3 (10:56→22:31)
[2023-09-28] MEDS: BACTROBAN 2% OINTMENT 1 APPLIC NASAL ×2 (10:57→20:55)
--- NOTE | 2023-09-28 12:15 | PTCARENOTE ---
EKG obtained as ordered, CT dressing changed
[2023-09-28] MEDS: NSS 500 IV (14:42)
--- NOTE | 2023-09-28 14:48 | CM ---
CM following for DC planning needs.
Met w/ patient at bedside. Patient feels okay.
Patient expects to remain hospitalized thru the weekend.
Anticipated DC plan is for home w/ CT Transitional Care RN.
Will cont. to follow.
[2023-09-28 15:13] LABS: Hematocrit 24.6 % (39.0-52.0); Mean Corp Hgb Conc. 34.6 g/dL (33.0-37.0); Mean Corpuscular Hgb 28.1 pg (27.0-31.0); Mean Corpuscular Volume 81.5 fL (80.0-94.0); Mean Platelet Volume 12.3 fL (7.4-10.4); Platelet Count 76 10^3/uL (130-400); Red Blood Cell Count 3.02 10^6/uL (4.70-6.10); White Blood Cell Count 12.7 10^3/uL (4.8-10.8)
[2023-09-28 15:17] LABS: Hemoglobin 8.5 g/dL (13.0-18.0)
--- NOTE | 2023-09-28 16:45 | PTCARENOTE ---
kelley catheter removed
[2023-09-28] MEDS: ROXICODONE 5 MG PO (20:56)
--- NOTE | 2023-09-28 21:45 | PTCARENOTE ---
Patient received resting in bed watching television. Patient A+A+Ox3. No neurological deficits noted. No c/o headache, dizziness or lightheadedness. Roxicodone 5mg PO for pain management. O2 at 3L. SaO2 95%. TURNER. 4 chest tubes - Mediastinal
x2 and Right and Left Pleural - Intact and patent - 10-20ml red drainage - No air leak, tidaling or crepitus. Sinus Rhythm. Heart rate 70's. No c/o chest pain, pressure or discomfort. Normoactive bowel sounds. No BM. No urge to void at this
time. Bladder scan for 200 ml. Right I.J. Cordis. Sternal Aquacell dressing intact. Chest tube dressing intact. Right groin site intact and open to air. Right knee incisions intact - Open to air. Patient with no c/o flank pain. No c/o
nausea. No vomiting. Afebrile. Assessment as documented.
[2023-09-29] VITALS (22 sets, daily range): BP systolic 107–150; BP diastolic 66–100; PULSE 87; O2SAT 93; BMI 29.7
--- NOTE | 2023-09-29 00:15 | PTCARENOTE ---
Patient sleeping without difficulty. No changes from previous assessment.
[2023-09-29 05:09] LABS: Ionized Calcium 1.14 mMOL/L (1.15-1.33)
--- NOTE | 2023-09-29 05:14 | W.PN.CT ---
Today's Communication / Plan
-
-No mamor issues overnight. Hemodynamically and neurologically intact
-Off all drips
-Has been hypotensive postop, improving
-Received 2u PRBCs yesterday 09/27 for h/h of 6.4/19.1, h/h is 7.8/23.1 today
-Plts 71K today, may need to hold ASA/Plavix if it doesn't rise tomorrow
-Denies lightheadedness/dizziness
-Having postop urinary retention, unable to void following kelley removal yesterday. Scanned for > 560 mL this AM, straight cath today. Flomax started
-Monitor chest tube drainage: 2 meds 40/140, R/L pls 60/120 (may need to keep L pleural - cxr shows left opacification concerning for effusion)
-Cont. current meds (ASA, Plavix, Crestor, Amio; resume low dose BB today, 12.5 mg Toprol XL QD, started Flomax)
-D/C cordis
-Cont. diuresis if BP permits
-Replete electrolytes
-Encourage use of IS
-Wean off of O2 as tolerated, cont. CPAP during sleep
-OOB into chair/Ambulated
-No temporary PW
Assessment / Plan
-
- mv-CAD CAD - s/p CABG x 5 (FAUSTO to LAD, GSV to D, GSV to OM, sGSV to PDA and RPLB) on 09/26/23, pod #3
- LVEF improved from 45-55% to 60-65%, no RWMA, no valvular heart disease
- HTN/HLD
- NESS, on CPAP
- BPH
- Elevated PSA
- Non-smoker
- Claustrophobia
- Acute postop blood loss anemia - s/p 4 pRBCs
- Acute postop coagulopathy - s/p 2 FFPs
- Acute postop thrombocytopenia - s/p 1 unit platelet
- Acute postop hypovolemia with subsequent hypervolemia
- Acute postop atelectasis
- Acute transient postop RBBB, LAFB - resolved
- Acute postop urinary retention (scanned for > 560 this AM, not able to void following kelley removal yesterday; straight cath)
Discussed patient care with: Cardiology, Nursing, Respiratory Therapy, Pharmacy and Care Team
Subjective
Procedure
- s/p CABG x 5 (FAUSTO to LAD, GSV to D, GSV to OM, sGSV to PDA and RPLB) on 09/26/23
-
Date of Service: September 29, 2023
Pt c/o mild incisional pain, otherwise feels well. Denies lightheadedness/dizziness
Objective Data
-
PT 17.4 Sec (11.4-14.6) H 09/27/23 00:30
INR 1.41 09/27/23 00:30
APTT 29.6 Sec (23.4-35.0) 09/27/23 00:30
Vital Signs
Vital Signs
Temp Pulse Resp BP Pulse Ox
98.1 F 70 20 109/66 96
09/28/23 22:00 09/29/23 03:00 09/29/23 03:00 09/29/23 03:00 09/28/23 22:00
CT Intake/Output/Weight
09/28/23 09/28/23 09/29/23
06:59 18:59 06:59
Intake Total 57.6 / 1246.4 550 / 1360 810 / 1360
Output Total 675 / 1200 985 / 1055 70 / 1055
Balance -617.4 / 46.4 -435 / 305 740 / 305
SaO2: 96 (2L)
Physical Exam
-
General: Awake, Oriented and AOx3
Cardiovascular: Regular rate & rhythm, No Murmurs and No Rub
Respiratory: Decreased Breath Sounds (at basis, mild basilar atelectasis)
Sternum: Stable
Incision: Clean, Dry, Intact and Dressing Intact
Extremities: Other (+trace edema)
Data Reviewed
-
Lab Results: Results Reviewed
Medications: Active Meds Reviewed
Chest X-Ray: Report Reviewed and Image Reviewed
ECG: Report Reviewed and Image Reviewed
[2023-09-29 05:25] LABS: Hematocrit 23.1 % (39.0-52.0); Hemoglobin 7.8 g/dL (13.0-18.0); Mean Corp Hgb Conc. 33.8 g/dL (33.0-37.0); Mean Corpuscular Hgb 28.2 pg (27.0-31.0); Mean Corpuscular Volume 83.4 fL (80.0-94.0); Mean Platelet Volume 11.9 fL (7.4-10.4); Platelet Count 71 10^3/uL (130-400); Red Blood Cell Count 2.77 10^6/uL (4.70-6.10); Red Cell Dist. Width 16.1 % (11.5-14.5); White Blood Cell Count 12.1 10^3/uL (4.8-10.8)
[2023-09-29 06:01] LABS: Blood Urea Nitrogen 34 mg/dl (9-20); Carbon Dioxide 26 mmol/L (22-30); Chloride 107 mmol/L (98-107); Estimated Creatinine Clearance 102 ml/min; Glucose 95 mg/dl (70-99); Magnesium 2.3 mg/dl (1.6-2.3); Potassium 3.7 mmol/L (3.5-5.1); Sodium 136 mmol/L (135-145); eGFR > 60.00
[2023-09-29] MEDS: DILAUDID 0.5 MG IV ×2 (06:21→23:00)
[2023-09-29] MEDS: CALCIUM CHLORIDE 10% SYRINGE 60 MG IV (06:30)
[2023-09-29] MEDS: TYLENOL PO (06:30)
--- NOTE | 2023-09-29 07:00 | PTCARENOTE ---
Patient A+A+Ox3. No neurological deficits noted. Patient resting in bed. Patient with no urge to void. Patient bladder scanned for 564 ml. Patient assisted to standing position with assist x2 to try to void. Patient unable to void. Patient
assisted back to bed. PA for CT Surgery, Thaddeus Ivory PA-C, made aware of bladder scan result and inability to void. Patient administered 0.5 mg IV Dilaudid before attempt to straight cath patient. No difficulty with straight cath - Output 550
ml erum urine. Patient now sleeping. Assessment/Interventions as documented.
--- NOTE | 2023-09-29 07:00 | PTCARENOTE ---
Bedside walking rounds report received. Patient seen on rounds oob in chair on room air.
[2023-09-29] MEDS: LIDOCAINE 4% PATCH 1 PATCH TOPICAL (09:09)
[2023-09-29] MEDS: NEURONTIN 100 MG PO ×3 (09:10→19:52)
[2023-09-29] MEDS: FEOSOL 325 MG PO ×2 (09:10→19:54)
[2023-09-29] MEDS: SENOKOT-S 1 TABLET PO ×2 (09:10→19:52)
[2023-09-29] MEDS: FLOMAX 0.400000000000000022 MG PO (09:10)
[2023-09-29] MEDS: CRESTOR 20 MG PO (09:10)
[2023-09-29] MEDS: TOPROL XL 12.5 MG PO ×2 (09:11→13:26)
[2023-09-29] MEDS: LOW STRENGTH ASPIRIN 81 MG PO (09:11)
[2023-09-29] MEDS: PACERONE 200 MG PO ×4 (09:11→22:54)
[2023-09-29] MEDS: VITAMIN C 500 MG PO (09:11)
[2023-09-29] MEDS: PROTONIX 40 MG PO (09:11)
[2023-09-29] MEDS: BACTROBAN 2% OINTMENT 1 APPLIC NASAL ×2 (09:12→19:55)
[2023-09-29] MEDS: KCL 40 MEQ PO (09:14)
[2023-09-29] MEDS: KCL 20 MEQ PO (11:25)
[2023-09-29] MEDS: FLEXERIL 5 MG PO (11:25)
[2023-09-29] MEDS: LASIX 40 MG PO (11:26)
[2023-09-29] MEDS: NSS IV (11:26)
--- NOTE | 2023-09-29 13:00 | PTCARENOTE ---
Stood in place: difficulty urinatinml clear straw colored urine. Bladder scanned for pvr of 582ml. CT surgical PA aware: straight cath patient for 725ml urine. Will reassess in [address] kelley if unable to void or empty out bladder
with excessive PVR.
[2023-09-29] MEDS: TYLENOL 1000 MG PO ×2 (13:27→19:52)
--- NOTE | 2023-09-29 15:38 | W.PN.CARDCBS ---
Today's Communication / Plan
-
post-op care
Impression / Plan
-
PCP: Dr. Torres
Cinder Dump Crane Operator: Dr. Guillen of [facility]
Impression:
Presented with chest pain
Unstable angina
Abnormal, high risk stress test
Severe multivessel CAD by cath 09/22/23
s/p CABG x 5 GUERRA to LAD, GSV to D, GSV to OM, sGSV to PDA and RPLB 09/26/23
Ischemic cardiomyopathy, EF 45%
HTN
HLD
NESS on CPAP
Echo 09/05/2023: EF 45%, mild concentric LVH, no significant valvular disease
ECHO 09/27/23: Technically difficult study, EF 65 to 70%, normal pericardium without effusion
Plan:
-s/p CABG x 5 GUERRA to LAD, GSV to D, GSV to OM, sGSV to PDA and RPLB 09/26/23
-weaned off pressors
-extubated on RA
-echo 09/26 with preserved EF and no pericardial effusion
-Cont asa/plavix/statin
-Consider adding BB
HPI: Yves is a 63 year old male with PMH of HTN, HLD, and NESS on CPAP who presented to [facility] due to progressively worsening angina. He was recently seen by cardiology at [facility] and was arranged for echo and stress testing. Stress testing reportedly
was high risk with significant inferolateral ischemia noted. Due to progressive symptoms, came to ER for sooner evaluation. He reports overall symptoms started approximately 1 month ago when he began having increased chest pain with exertion.
Symptoms resolved with rest. Over time, symptoms have been brought on with lesser and lesser degrees of exertion and now he is symptomatic with minimal exertion and has mild pain at rest. Denies any associated shortness of breath, dizziness,
lightheadedness, lower extremity edema, or diaphoresis. He reports currently he has very minimal discomfort. He notes no personal prior cardiac history, however notes strong family history in his mother, father, and brother.
Progress Note - Cinder Dump Crane Operator
Subjective
Date of Service: September 29, 2023
NAOE. Resting comfortably OOB to chair. No lightheadedness/dizziness. No chest pain or SOB.
Objective
Labs:
09/29/23 05:00
09/29/23 05:00
Labs
Hgb 7.8 g/dL (13.0-18.0) L 09/29/23 05:00
Hct 23.1 % (39.0-52.0) L 09/29/23 05:00
Plt Count 71 10^3/uL (130-400) L 09/29/23 05:00
PT 17.4 Sec (11.4-14.6) H 09/27/23 00:30
INR 1.41 09/27/23 00:30
APTT 29.6 Sec (23.4-35.0) 09/27/23 00:30
Sodium 136 mmol/L (135-145) 09/29/23 05:00
Potassium 3.7 mmol/L (3.5-5.1) 09/29/23 05:00
BUN 34 mg/dl (9-20) H 09/29/23 05:00
Creatinine 0.8 mg/dL (0.7-1.3) 09/29/23 05:00
Glucose 95 mg/dl (70-99) 09/29/23 05:00
Vital Signs and I&O:
Vital Signs
Temp Pulse Resp BP Pulse Ox
98 F 95 18 132/83 94
09/29/23 11:33 09/29/23 14:00 09/29/23 11:33 09/29/23 12:57 09/29/23 11:33
Vital Signs
Temp Pulse Resp BP Pulse Ox
98 F 95 18 132/83 94
09/29/23 11:33 09/29/23 14:00 09/29/23 11:33 09/29/23 12:57 03/16/24 11:33
Intake & Output
09/27/23 09/28/23 09/29/23 09/30/23
06:59 06:59 06:59 06:59
Intake Total 1973.7 / 2005.4 1246.4 / 1246.4 1450 / 1450 850 / 850
Output Total 2009 1200 / 1200 1095 / 1645 1400 / 1400
Balance -36.3 / -23.6 46.4 / 46.4 355 / -195 -550 / -550
Physical Exam
Physical Exam
Gen: NAD, OOB to chair
HEENT: NC/AT, sclera anicteric
Neck: No JVD
CV: RRR, NL s1/s2
Lungs: CTAB on RA. Chest tubes with sanguineous drainage.
Abd: S/ND
: Rebolledo with erum urine.
Ext: No LE edema
Skin: Warm, dry. Sternotomy CDI.
Neuro: Non-focal
[2023-09-29] MEDS: ROXICODONE 5 MG PO (15:56)
--- NOTE | 2023-09-29 20:00 | PTCARENOTE ---
assumed care of patient @ 1900. recieved pt sitting in chair, AOX3. Anxious. VSS on RA. No c/o pain. NSR/ST on monitor. Lungs diminished on RA, TURNER. 4 chest tubes present 2 meds and L and R pleural. no air leak, tidaling or crepitus noted. +gas no
BM yet. Difficulty voiding, assisted to stand to void - 50 mls of erum urine, PVR 410. Discussed with CTPA, will re try at 2300. All surgical sites CDI WDL. R IJ cordis with kvo present. pt assisted back to bed, resting comfortably with call sepulveda
within reach.
--- NOTE | 2023-09-29 21:00 | PTCARENOTE ---
CTPA assessing patient - milked chest tubes - Pleural chest tubes apparently clogged, dumped 400 old dark blood. Will follow
[2023-09-29] MEDS: DILAUDID 0.25 MG IV ×2 (22:33→23:34)
--- NOTE | 2023-09-29 23:00 | PTCARENOTE ---
pleural chest tubes dumped 1200 in total - pt with severe 10/10 pain during this , calling out, multiple doses of dilaudid given see mar. CTPA assessed patient - old blood, likely cause of severe pain, will do XRAY and labwork in AM. New loud
pleural rub heart with inspiration and expiration.
--- NOTE | 2023-09-29 23:59 | PTCARENOTE ---
patient still unable to void, scanned for >400, orders obtained for kelley, 16 fr kelley inserted with 450 mls yellow urine returned
[2023-09-30] VITALS (14 sets, daily range): BP systolic 113–146; BP diastolic 70–90; PULSE 94–117; O2SAT 92–95; BMI 28.9
[2023-09-30] MEDS: TYLENOL 650 MG PO (00:26)
[2023-09-30] MEDS: ROXICODONE 5 MG PO ×2 (00:26→13:52)
[2023-09-30] MEDS: DILAUDID 0.5 MG IV (00:56)
[2023-09-30] MEDS: REGLAN 10 MG IV ×2 (01:17→21:59)
[2023-09-30] MEDS: MYLICON 80 MG PO ×3 (01:17→21:58)
[2023-09-30 02:53] LABS: Hematocrit 25.6 % (39.0-52.0); Hemoglobin 8.7 g/dL (13.0-18.0); Mean Corpuscular Hgb 28.2 pg (27.0-31.0); Mean Corpuscular Volume 82.8 fL (80.0-94.0); Mean Platelet Volume 11.9 fL (7.4-10.4); Platelet Count 123 10^3/uL (130-400); Red Blood Cell Count 3.09 10^6/uL (4.70-6.10); White Blood Cell Count 17.4 10^3/uL (4.8-10.8)
[2023-09-30 03:06] LABS: Blood Urea Nitrogen 29 mg/dl (9-20); Calcium 7.7 mg/dl (8.4-10.2); Carbon Dioxide 21 mmol/L (22-30); Chloride 108 mmol/L (98-107); Estimated Creatinine Clearance 102 ml/min; Glucose 128 mg/dl (70-99); Magnesium 1.8 mg/dl (1.6-2.3); Potassium 3.3 mmol/L (3.5-5.1); Sodium 136 mmol/L (135-145); eGFR > 60.00
[2023-09-30] MEDS: KCL 100 IV (04:20)
--- NOTE | 2023-09-30 04:30 | PTCARENOTE ---
Pt had CXR done- CTPA believes possible ileus - assisted pt to walk in hallway roughly 30 feet - afterwards felt better with noticeable decrease in pain. Labs drawn and sent - pt now resting comfortably in chair with call sepulveda within reach
--- NOTE | 2023-09-30 04:31 | W.PN.CT ---
Today's Communication / Plan
-
-No major issues overnight. Hemodynamically and neurologically intact
-C/o pleuritic chest pain with radiation to back last night, cxr showed distended bowels concerning for paralytic ileus, given Reglan and Simethicone
-Advised to ambulate as pt has not been out of room since surgery
-Abdomen is distended with diminished BS, admits to flatus but no BM
-Will obtain abd x-ray when pt goes down for his 2-view cxr today. NPO today to allow bowel rest
-Pt with postop urinary retention, has required straight cath x 2 since kelley removal and had kelley reinserted overnight after scanned for > 450 mL. On Flomax
-Pleural chest tubes appeared clogged and required stripping/milking last night, resulting in increased residual dark bloody pleural drainage. Left basilar opacification has improved on cxr
this AM on my review, f/u official report
-Consider d/c of chest tubes today: 2meds 220/295, R/L pleurals 1350/1380 (after stripping, old dark residual blood)
-Has been hypotensive postop, improving
-Received 2u PRBCs on 09/27 for h/h of 6.4/19.1, h/h is 8.7/25.6 today
-Plts 123K today, up from 71K yesterday. Cont ASA, start Plavix (was held yesterday)
-Cont. current meds (ASA, Plavix, Crestor, Amio; resume low dose BB today, 12.5 mg Toprol XL QD, Flomax)
-D/C cordis
-Cont. diuresis if BP permits
-Replete electrolytes
-Encourage use of IS
-Wean off of O2 as tolerated, cont. CPAP during sleep
-OOB into chair/Ambulate
-No temporary PW
-Home in 1-2 days
Assessment / Plan
-
- mv-CAD CAD - s/p CABG x 5 (FAUSTO to LAD, GSV to D, GSV to OM, sGSV to PDA and RPLB) on 09/26/23, pod #4
- LVEF improved from 45-55% to 60-65%, no RWMA, no valvular heart disease
- HTN/HLD
- NESS, on CPAP
- BPH
- Elevated PSA
- Non-smoker
- Claustrophobia
- Acute postop blood loss anemia - s/p 4 pRBCs
- Acute postop coagulopathy - s/p 2 FFPs
- Acute postop thrombocytopenia - s/p 1 unit platelet
- Acute postop hypovolemia with subsequent hypervolemia
- Acute postop atelectasis
- Acute transient postop RBBB, LAFB - resolved
- Acute postop urinary retention (scanned for > 560 this AM, not able to void following kelley removal yesterday; straight cath)
- Acute postop probable paralytic ileus (distended abd, +flatus, no BM)
Discussed patient care with: Cardiology, Nursing, Respiratory Therapy, Pharmacy and Care Team
Subjective
Procedure
- s/p CABG x 5 (FAUSTO to LAD, GSV to D, GSV to OM, sGSV to PDA and RPLB) on 09/26/23
-
Date of Service: September 30, 2023
Pt c/o pleuritic chest pain with radiation to back last night, cxr showed distended bowels concerning for paralytic ileus, given Reglan and Simethicone. Advised to ambulate as pt has not been outside room since surgery. Also c/o inability to void,
kelley reinserted overnight
Objective Data
-
Lab Results
09/30/23 02:43
09/30/23 02:43
PT 17.4 Sec (11.4-14.6) H 09/27/23 00:30
INR 1.41 09/27/23 00:30
APTT 29.6 Sec (23.4-35.0) 09/27/23 00:30
Vital Signs
Vital Signs
Temp Pulse Resp BP Pulse Ox
97.7 F 92 22 149/86 95
09/29/23 20:00 09/30/23 00:00 09/30/23 00:00 09/29/23 23:23 09/30/23 00:00
CT Intake/Output/Weight
09/29/23 09/29/23 09/30/23
06:59 18:59 06:59
Intake Total 900 / 1450 1505 / 2005 500 / 2005
Output Total 110 / 1645 1480 / 3100 1620 / 3100
Balance 790 / -195 25 / -1095 -1120 / -1095
SaO2: 98 (4L)
Physical Exam
-
General: Awake, Oriented and AOx3
Cardiovascular: Regular rate & rhythm, No Murmurs, No Rub and No Gallop
Respiratory: Decreased Breath Sounds (at bases with mild basilar crackles)
Sternum: Stable
Incision: Clean, Dry, Intact and Dressing Intact
Extremities: Other (+trace edema)
Abdomen: distended with decreased BS, admits to flatus but no BM
Data Reviewed
-
Lab Results: Results Reviewed
Medications: Active Meds Reviewed
Chest X-Ray: Report Reviewed and Image Reviewed
ECG: Report Reviewed and Image Reviewed
[2023-09-30] MEDS: TYLENOL 1000 MG PO ×3 (06:00→21:39)
[2023-09-30] MEDS: CALCIUM CHLORIDE 10% SYRINGE 60 MG IV (06:34)
--- NOTE | 2023-09-30 07:00 | PTCARENOTE ---
Bedside walking rounds report received. Patient seen on rounds resting in chair on room air: overnight chest tube drainage events reported. Chest tubes continue to drain dark bloody old drainage: PA ct surgery aware on rounds. Keep CT's this am and
observe drainage and increase ambulation: get abd/pelvis xray this am. Patient does have active bowel sounds x 4 quads and has flatulence occasionally. See flow record for remaining assessments.
[2023-09-30] MEDS: LOW STRENGTH ASPIRIN 81 MG PO (08:13)
[2023-09-30] MEDS: PROTONIX 40 MG PO (08:13)
[2023-09-30] MEDS: PACERONE 200 MG PO ×4 (08:13→21:39)
[2023-09-30] MEDS: FEOSOL 325 MG PO ×2 (08:13→20:24)
[2023-09-30] MEDS: LIDOCAINE 4% PATCH 1 PATCH TOPICAL (08:13)
[2023-09-30] MEDS: TOPROL XL 12.5 MG PO ×2 (08:14→20:21)
[2023-09-30] MEDS: NEURONTIN 100 MG PO ×3 (08:14→21:39)
[2023-09-30] MEDS: BACTROBAN 2% OINTMENT 1 APPLIC NASAL (08:14)
[2023-09-30] MEDS: SENOKOT-S 1 TABLET PO ×2 (08:14→20:21)
[2023-09-30] MEDS: CRESTOR 20 MG PO (08:14)
[2023-09-30] MEDS: FLOMAX 0.400000000000000022 MG PO ×2 (08:14→10:43)
[2023-09-30] MEDS: VITAMIN C 500 MG PO (08:14)
[2023-09-30] MEDS: DILAUDID 0.25 MG IV ×4 (08:34→23:51)
--- NOTE | 2023-09-30 09:49 | W.PN.UPDATE ---
Update Note
Progress Note Update
Discussed with Urology. Recommend TOV tomorrow. If he fails again, would discharge with kelley and follow up with outpatient urologist Dr. Herrera for further management. Also recommending increasing flomax to 0.8 mg as tolerated.
--- NOTE | 2023-09-30 12:30 | PTCARENOTE ---
No acute changes: Dr. Hernandez here: plan to place all chest tubes to bulb drain suction this afternoon. NSR to ST with activity on room air.
--- NOTE | 2023-09-30 13:30 | PTCARENOTE ---
No acute changes: assisted back to bed. Chest tubes x 4 right and left pleural and meds x 2 to rayna bulb drain suction. Right IJ cordis dc. Patient back up to chair. Plan to maintain kelley another day for acute urinary retention and increase flomax
dose to 0.8mg po daily.
[2023-09-30] MEDS: NSS IV (13:52)
--- NOTE | 2023-09-30 17:30 | PTCARENOTE ---
Ambulated 100feet on room air with assist of 1: sinus tach to 120's: patient having severe pain now on right mid to upper back: CT surgery PA made aware and also aware of dark bloody drainage from ELVIS chest tube bulb suction drains mediastinal A and
Right pleural. Continue to monitor drainage and for acute changes. Medicated for pain,
--- NOTE | 2023-09-30 20:00 | PTCARENOTE ---
assumed care of patient @ 1900. recieved pt sitting in in chair, AOX3, anxious at baseline, VSS on RA. NSR/ST on tele. +pulses, +2 lower extremity edema. Lungs clear, diminished on room air. 4 bulbed chest tubes - 2 med and 2 pleural no air leak or
crepitus noted. serosang drainage. +Gas, no BM yet. kelley for acute retention draining clear yellow urine. All surgical sites CDI. R AC PIV patent. at bedside, call sepulveda within reach
[2023-09-30] MEDS: MAGNESIUM OXIDE 500 MG PO (20:23)
[2023-09-30] MEDS: DULCOLAX 10 MG PO (21:38)
[2023-09-30] MEDS: KCL ELIXIR 40 MEQ PO (21:39)
[2023-09-30] MEDS: LASIX 20 MG IV (21:40)
[2023-09-30] MEDS: FLEXERIL 10 MG PO (21:40)
[2023-10-01] VITALS (14 sets, daily range): BP systolic 89–148; BP diastolic 64–94; PULSE 97; O2SAT 94; BMI 28.9
--- NOTE | 2023-10-01 | PTCARENOTE ---
pt with sever pain, trouble getting into comfortable position. .25 Dilaudid given with some relief, as well as simethicone and reglan to help with gas pain/motility.
[2023-10-01 03:28] LABS: Ionized Calcium 1.04 mMOL/L (1.15-1.33)
[2023-10-01 03:32] LABS: Hematocrit 25.2 % (39.0-52.0); Hemoglobin 8.6 g/dL (13.0-18.0); Mean Corp Hgb Conc. 34.1 g/dL (33.0-37.0); Mean Corpuscular Hgb 28.3 pg (27.0-31.0); Mean Corpuscular Volume 82.9 fL (80.0-94.0); Mean Platelet Volume 10.9 fL (7.4-10.4); Platelet Count 139 10^3/uL (130-400); Red Blood Cell Count 3.04 10^6/uL (4.70-6.10); Red Cell Dist. Width 16.3 % (11.5-14.5); White Blood Cell Count 12.2 10^3/uL (4.8-10.8)
[2023-10-01 03:51] LABS: ALT (SGPT) 22 U/L (0-50); AST (SGOT) 37 U/L (17-59); Albumin 3.7 g/dl (3.5-5.0); Alkaline Phosphatase 57 U/L (38-126); Blood Urea Nitrogen 35 mg/dl (9-20); Calcium 8.6 mg/dl (8.4-10.2); Carbon Dioxide 21 mmol/L (22-30); Chloride 107 mmol/L (98-107); Direct Bilirubin 0.1 mg/dl (0.0-0.4); Estimated Creatinine Clearance 91 ml/min; Glucose 109 mg/dl (70-99); Lipase 274 U/L (23-300); Magnesium 2.3 mg/dl (1.6-2.3); Potassium 4.2 mmol/L (3.5-5.1); Sodium 136 mmol/L (135-145); Total Bilirubin 0.8 mg/dl (0.2-1.3); eGFR > 60.00
--- NOTE | 2023-10-01 04:08 | W.PN.CT ---
Addendum entered and electronically signed by Jayme Hernandez MD 10/01/23 06:37:
I saw and examined the patient.
The PA's note was reviewed and I agree with the note.
Comment:
POD#5 s/p CABG x 5
Postoperative course complicated by early coagulopathy (resolved) and significant pain complaints limiting time out-of-bed, mobility, IS, etc. It is my hope that the majority of this pleuritic discomfort is CT related. Will remove his CTs today
and reassess.
- Strongly encourage ambulation, IS, OOB, PT today
- Voiding trial today per urology recommendations
- Continue current medications
Original Note:
Today's Communication / Plan
-
-No major issues overnight. Hemodynamically and neurologically intact
-C/o pleuritic chest pain with radiation to back
-Consider d/c of chest tubes: Meds split to A and B. A-> 10/, B->15/25; Pleurals split to R and L, R-> 50/150, L-> 30/60. F/U 2-view cxr
-Abdomen is distended with diminished BS, admits to flatus but no BM. Will likely benefit from mag citrated today
-Pt with postop urinary retention, has required straight cath x 2 since kelley removal and had kelley reinserted early AM of 09/13, started on Flomax
-Per Urology, d/c kelley today with voiding trials, pt to go home with kelley if fails voiding trial, will need to f/u with his outpt Urologist
-Has been hypotensive postop, improved. Now tolerating low dose BB
-Received 2u PRBCs on 09/27 for h/h of 6.4/19.1, h/h is 8.6/25.2 today
-Plts 139K today, was as low as 70K. Cont ASA and Plavix
-Cont. current meds (ASA, Plavix, Crestor, Amio; 12.5 mg Toprol XL BID, Flomax)
-Diuresis if BP permits
-Replete electrolytes
-Encourage use of IS
-Wean off of O2 as tolerated, cont. CPAP during sleep
-OOB into chair/Ambulate
-PT/OT following
-No temporary PW
-Home in 1-2 days
Assessment / Plan
-
- mv-CAD CAD - s/p CABG x 5 (FAUSTO to LAD, GSV to D, GSV to OM, sGSV to PDA and RPLB) on 09/26/23, pod #5
- LVEF improved from 45-55% to 60-65%, no RWMA, no valvular heart disease
- HTN/HLD
- NESS, on CPAP
- BPH
- Elevated PSA
- Non-smoker
- Claustrophobia
- Acute postop blood loss anemia - s/p 4 pRBCs
- Acute postop coagulopathy - s/p 2 FFPs
- Acute postop thrombocytopenia - s/p 1 unit platelet
- Acute postop hypovolemia with subsequent hypervolemia
- Acute postop atelectasis/pleural effusion
- Acute postop pulmonary insufficiency
- Acute transient postop RBBB, LAFB - resolved
- Acute postop urinary retention (scanned for > 560 this AM, not able to void following kelley removal yesterday; straight cath)
- Acute postop probable paralytic ileus (distended abd, +flatus, no BM)
- Acute postop constipation
Discussed patient care with: Cardiology, Nursing, Respiratory Therapy, Pharmacy and Care Team
Subjective
Procedure
- s/p CABG x 5 (FAUSTO to LAD, GSV to D, GSV to OM, sGSV to PDA and RPLB) on 09/26/23
-
Date of Service: October 01, 2023
Pt c/o pleuritic chest with radiation to back, otherwise feels well. Abdomen distended with diminished BS, appears constipated, admits to flatus but denies BM postop
Objective Data
-
Lab Results
10/01/23 03:21
10/01/23 03:21
PT 17.4 Sec (11.4-14.6) H 09/27/23 00:30
INR 1.41 09/27/23 00:30
APTT 29.6 Sec (23.4-35.0) 09/27/23 00:30
Vital Signs
Vital Signs
Temp Pulse Resp BP Pulse Ox
98.2 F 90 16 100/69 99
09/30/23 20:00 10/01/23 02:00 10/01/23 00:00 10/01/23 00:46 10/01/23 00:00
CT Intake/Output/Weight
09/30/23 09/30/23 10/01/23
06:59 18:59 06:59
Intake Total 500 / 2005 420 / 900 480 / 900
Output Total 2220 / 3700 860 / 1165 305 / 1165
Balance -1720 / -1695 -440 / -265 175 / -265
SaO2: 99 (2L)
Physical Exam
-
General: Awake, Oriented and AOx3
Cardiovascular: Regular rate & rhythm, No Murmurs, No Rub and No Gallop
Respiratory: Decreased Breath Sounds (at bases, otherwise clear)
Sternum: Stable
Incision: Clean, Dry, Intact and Dressing Intact
Extremities: Other (+trace edema)
Data Reviewed
-
Lab Results: Results Reviewed
Medications: Active Meds Reviewed
Chest X-Ray: Report Reviewed and Image Reviewed
ECG: Report Reviewed and Image Reviewed
[2023-10-01] MEDS: CALCIUM GLUCONATE 100 IV (05:57)
[2023-10-01] MEDS: DILAUDID 0.25 MG IV (07:10)
--- NOTE | 2023-10-01 07:30 | PTCARENOTE ---
Assisted back to bed: all 4 chest tubes removed by CAROLINA Cassidy with RN assist to tie purse string. Tolerated well. OOB to chair. NSR to ST with activity. Room air.
[2023-10-01] MEDS: MAGNESIUM OXIDE 500 MG PO ×2 (08:23→20:47)
[2023-10-01] MEDS: PROTONIX 40 MG PO (08:23)
[2023-10-01] MEDS: LOW STRENGTH ASPIRIN 81 MG PO (08:23)
[2023-10-01] MEDS: VITAMIN C 500 MG PO (08:24)
[2023-10-01] MEDS: CRESTOR 20 MG PO (08:24)
[2023-10-01] MEDS: SENOKOT-S 1 TABLET PO ×2 (08:24→20:47)
[2023-10-01] MEDS: FEOSOL 325 MG PO ×2 (08:24→20:48)
[2023-10-01] MEDS: FLOMAX 0.800000000000000044 MG PO (08:24)
[2023-10-01] MEDS: TYLENOL 1000 MG PO ×3 (08:24→20:47)
[2023-10-01] MEDS: TOPROL XL 12.5 MG PO ×2 (08:24→20:48)
[2023-10-01] MEDS: PACERONE 200 MG PO ×3 (08:24→20:48)
[2023-10-01] MEDS: MIRALAX 17 GRAMS PO (08:25)
[2023-10-01] MEDS: LIDOCAINE 4% PATCH 1 PATCH TOPICAL (08:25)
[2023-10-01] MEDS: MILK OF MAGNESIA 30 ML PO (08:25)
[2023-10-01] MEDS: NEURONTIN 100 MG PO ×3 (08:26→20:47)
--- NOTE | 2023-10-01 09:02 | W.PN.CARDCBS ---
Addendum entered and electronically signed by Billy Hoskins MD 10/01/23 12:23:
I saw and examined the patient.
The [employer] TENDER HELPER or PA's note was reviewed and I agree with the note.
Comment: General: Well developed, well nourished in NAD.
Neck: Supple, no JVD, HJR, carotids +2 B/L, no bruits bilaterally.
Heart: Non displaced PMI, RRR, no murmurs, No S3, S4, no rubs.
Lungs: Scattered rhonchi at right base
Sternal dressings noted
Extremities: No clubbing, cyanosis or edema bilaterally.
Neuro: Grossly nonfocal, awake, alert and oriented x3.
Stable cardiology status. Chest tubes removed earlier this morning. Discussed with CT surgery PA and there was a small pneumothorax. He remains in sinus rhythm.
Original Note:
Today's Communication / Plan
-
Continue post op care
Voiding trial
Consider resuming plavix
Impression / Plan
-
PCP: Dr. Torres
Unit Support Representative: Dr. Guillen of [facility]
Impression:
Presented with chest pain
Unstable angina
Abnormal, high risk stress test
Severe multivessel CAD by cath 09/22/23
s/p CABG x 5 (GUERRA to LAD, GSV to D, GSV to OM, sGSV to PDA and RPLB) 09/26/23
Ischemic cardiomyopathy, EF 45%
HTN
HLD
NESS on CPAP
Echo 09/05/2023: EF 45%, mild concentric LVH, no significant valvular disease
Echo 09/27/2023: Technically difficult study, EF 65 to 70%, normal pericardium without effusion
Plan:
-s/p CABG x 5 GUERRA to LAD, GSV to D, GSV to OM, sGSV to PDA and RPLB 09/26/23. POD #5.
-Doing well overall. BPs improving, off pressors. Continue Toprol 12.5mg BID
-Echo 09/26 with preserved EF and no pericardial effusion.
-Continue aspirin. Plavix has been on hold due to anemia/thrombocytopenia. Plt 139 today, 09/30. Consider resuming if OK per CT surgery.
-Remains in SR on tele. Continue amiodarone/metoprolol.
-Continue Crestor.
-CT removed this AM. Small R apical pneumothorax noted on follow up xray. Voiding trial later today.
HPI: Yves is a 63 year old male with PMH of HTN, HLD, and NESS on CPAP who presented to [facility] due to progressively worsening angina. He was recently seen by cardiology at [facility] and was arranged for echo and stress testing. Stress testing reportedly
was high risk with significant inferolateral ischemia noted. Due to progressive symptoms, came to ER for sooner evaluation. He reports overall symptoms started approximately 1 month ago when he began having increased chest pain with exertion.
Symptoms resolved with rest. Over time, symptoms have been brought on with lesser and lesser degrees of exertion and now he is symptomatic with minimal exertion and has mild pain at rest. Denies any associated shortness of breath, dizziness,
lightheadedness, lower extremity edema, or diaphoresis. He reports currently he has very minimal discomfort. He notes no personal prior cardiac history, however notes strong family history in his mother, father, and brother.
Progress Note - Unit Support Representative
Subjective
Date of Service: October 01, 2023
Still with some chest soreness, worse w/ deep inspiration.
Objective
Labs:
10/01/23 03:21
10/01/23 03:21
Labs
Hgb 8.6 g/dL (13.0-18.0) L 10/01/23 03:21
Hct 25.2 % (39.0-52.0) L 10/01/23 03:21
Plt Count 139 10^3/uL (130-400) 10/01/23 03:21
PT 17.4 Sec (11.4-14.6) H 09/27/23 00:30
INR 1.41 09/27/23 00:30
APTT 29.6 Sec (23.4-35.0) 09/27/23 00:30
Sodium 136 mmol/L (135-145) 10/01/23 03:21
Potassium 4.2 mmol/L (3.5-5.1) D 10/01/23 03:21
BUN 35 mg/dl (9-20) H 10/01/23 03:21
Creatinine 0.9 mg/dL (0.7-1.3) 10/01/23 03:21
Glucose 109 mg/dl (70-99) H 10/01/23 03:21
Vital Signs and I&O:
Vital Signs
Temp Pulse Resp BP Pulse Ox
99.5 F 109 22 143/94 96
10/01/23 07:15 10/01/23 08:00 10/01/23 07:15 10/01/23 07:15 10/01/23 07:15
Vital Signs
Temp Pulse Resp BP Pulse Ox
99.5 F 109 22 143/94 96
10/01/23 07:15 10/01/23 08:00 10/01/23 07:15 10/01/23 07:15 10/01/23 07:15
Intake & Output
09/29/23 09/30/23 10/01/23 10/02/23
06:59 06:59 06:59 06:59
Intake Total 1450 / 1450 2004 / 2004 900 / 900
Output Total 1095 / 1645 3700 / 3700 1555 / 1555
Balance 355 / -195 -1695 / -1695 -655 / -655
Physical Exam
Physical Exam
Gen: NAD, OOB to chair
HEENT: NC/AT, sclera anicteric
Neck: No JVD
CV: RRR, NL s1/s2
Lungs: CTA b/l, no wheezes/rales
: Rebolledo with erum urine.
Ext: No clubbing or cyanosis, trace LE edema
Skin: Warm, dry. Sternotomy CDI.
Neuro: Non-focal
[2023-10-01] MEDS: TORADOL 15 MG IV (09:46)
--- NOTE | 2023-10-01 12:45 | CM ---
Reviewed chart. Met with Mr. Parry to review discharge plans. He states prior to admission he in a two story home with resides with his spouse, daughter and son with two steps to enter. He states he has a master suite on the first floor, but he
goes up a full flight of steps to his bedroom. He states prior to admission he was independent wt ambulation and adls. He states he may need a rolling walker to go home. He states his spouse will be home to assist in his care. He states his
daughter works from home and will be available to assist in care also. Son works outside the home. We reviewed a home visit by the Cardiothoracic Transitional Care Nurse. He is agreeable to a home visit. Chest tube came out today. Will see his
functional level tomorrow to see if he has any skilled care needs. Medical work-up in progress. The discharge plan is to return home with his spouse and a home visit by the Cardiothoracic Transitional Care Nurse. versus some level of inpatient
rehab. when medically stable.
--- NOTE | 2023-10-01 13:00 | PTCARENOTE ---
Patient had CXR port repeat: right apical pneumo unchanged and small. Room air. Drastic improvement in pain since chest tubes removed. No BM.
--- NOTE | 2023-10-01 15:00 | PTCARENOTE ---
No acute changes. Rebolledo catheter removed
[2023-10-01] MEDS: NSS IV (16:05)
--- NOTE | 2023-10-01 18:45 | PTCARENOTE ---
No acute changes. Ambulated 200feet on room air. Sinus tach
[2023-10-01] MEDS: FLEXERIL 10 MG PO (20:48)
--- NOTE | 2023-10-01 21:00 | PTCARENOTE ---
assumed care of patient @ 1900. received pt sitting in chair with family members at bedside, AOX3, VSS on RA. NSR on tele monitor, +PP +1 LE edema. Lungs clear, diminished on room air. Chest tubes out, pt states much improvement in pain and
breathing. +BS, no BM yet. DTV, scanned for 150 mls. no urge to void at this time. All surgical sites CDI, WDL. Pt resting comfortably in bed with call sepulveda within reach.
[2023-10-02] VITALS (13 sets, daily range): BP systolic 103–146; BP diastolic 66–84; PULSE 97; O2SAT 98; BMI 29.0
--- NOTE | 2023-10-02 01:03 | PTCARENOTE ---
pt attempted to void - voided 20 mls, PVR 230. will follow
[2023-10-02] MEDS: TYLENOL 650 MG PO (03:27)
--- NOTE | 2023-10-02 03:58 | W.PN.CT ---
Addendum entered and electronically signed by Jayme Hernandez MD 10/02/23 09:10:
I saw and examined the patient.
The PA's note was reviewed and I agree with the note.
Comment:
Making good progress. Pain much better controlled.
OOB/ambulate
D/C planning for 1-2 days
Original Note:
Today's Communication / Plan
-
-No major issues overnight. Hemodynamically and neurologically intact
-Pleuritic chest pain has significantly improved following chest tube removal yesterday
-Abdominal distention has also improved: +BS, +flatus, no BM yet. Will likely benefit from mag citrated today
-Urinary retention has improved as well, able to spontaneously void with ~ 100 mL post void residual, will cont. to evaluate throughout the day. On Flomax
-24hrs u/o 570 mL, 270 mL since kelley removed yesterday ~1600
-Per Urology, will reinsert and send home with kelley if pt fails voiding trial, will need to f/u with his outpt Urologist
-Has been hypotensive postop, improved. Now tolerating low dose BB
-Received 2u PRBCs on 09/27 for h/h of 6.4/19.1, h/h is 8.6/25.2 today
-Plts 139K today, was as low as 70K. Cont ASA and Plavix
-Cont. current meds (ASA, Plavix, Crestor, Amio; 12.5 mg Toprol XL BID, Flomax)
-Diuresis if BP permits
-Replete electrolytes
-F/U 2-view cxr, has small apical ptx post chest tube removal yesterday
-Encourage use of IS
-Wean off of O2 as tolerated, cont. CPAP during sleep
-OOB into chair/Ambulate
-PT/OT following
-No temporary PW
-Home likely tomorrow
Assessment / Plan
-
- mv-CAD CAD - s/p CABG x 5 (FAUSTO to LAD, GSV to D, GSV to OM, sGSV to PDA and RPLB) on 09/26/23, pod #6
- LVEF improved from 45-55% to 60-65%, no RWMA, no valvular heart disease
- HTN/HLD
- NESS, on CPAP
- BPH
- Elevated PSA
- Non-smoker
- Claustrophobia
- Acute postop blood loss anemia - s/p 4 pRBCs
- Acute postop coagulopathy - s/p 2 FFPs
- Acute postop thrombocytopenia - s/p 1 unit platelet
- Acute postop hypovolemia with subsequent hypervolemia
- Acute postop atelectasis/pleural effusion
- Acute postop pulmonary insufficiency
- Acute transient postop RBBB, LAFB - resolved
- Acute postop urinary retention (scanned for > 560 this AM, not able to void following kelley removal yesterday; straight cath)
- Acute postop probable paralytic ileus (distended abd, +flatus, no BM)
- Acute postop constipation
- Acute postop stable small right apical ptx post chest tube removal
Discussed patient care with: Cardiology, Nursing, Respiratory Therapy, Pharmacy and Care Team
Subjective
Procedure
- s/p CABG x 5 (FAUSTO to LAD, GSV to D, GSV to OM, sGSV to PDA and RPLB) on 09/26/23
-
Date of Service: October 02, 2023
Pt states he feels so much better following chest tube removal yesterday, pleuritic chest pain has almost resolved. Ambulating halls
Objective Data
-
PT 17.4 Sec (11.4-14.6) H 09/27/23 00:30
INR 1.41 09/27/23 00:30
APTT 29.6 Sec (23.4-35.0) 09/27/23 00:30
Vital Signs
Vital Signs
Temp Pulse Resp BP Pulse Ox
97.7 F 83 16 122/71 95
10/01/23 21:36 10/02/23 00:57 10/02/23 00:57 10/02/23 00:18 10/02/23 00:57
CT Intake/Output/Weight
10/01/23 10/01/23 10/02/23
06:59 18:59 06:59
Intake Total 480 / 900 1030 / 1510 480 / 1510
Output Total 695 / 1555 335 / 355 20 / 355
Balance -215 / -655 695 / 1155 460 / 1155
SaO2: 95 (2L)
Physical Exam
-
General: Awake, Oriented and AOx3
Cardiovascular: Regular rate & rhythm, No Murmurs and No Gallop
Respiratory: Decreased Breath Sounds (at bases, with mild basilar crackles)
Sternum: Stable
Incision: Clean, Dry, Intact and Dressing Intact
Extremities: Other (+trace edema)
Data Reviewed
-
Lab Results: Results Reviewed
Medications: Active Meds Reviewed
Chest X-Ray: Report Reviewed and Image Reviewed
ECG: Report Reviewed and Image Reviewed
[2023-10-02 04:01] LABS: Hemoglobin 8.2 g/dL (13.0-18.0); Mean Corp Hgb Conc. 32.8 g/dL (33.0-37.0); Mean Corpuscular Volume 85.3 fL (80.0-94.0); Mean Platelet Volume 11.1 fL (7.4-10.4); Platelet Count 169 10^3/uL (130-400); Red Blood Cell Count 2.93 10^6/uL (4.70-6.10); Red Cell Dist. Width 16.2 % (11.5-14.5); White Blood Cell Count 10.8 10^3/uL (4.8-10.8)
[2023-10-02] MEDS: PLAVIX PO (04:05)
[2023-10-02 04:24] LABS: Blood Urea Nitrogen 40 mg/dl (9-20); Calcium 8.2 mg/dl (8.4-10.2); Carbon Dioxide 27 mmol/L (22-30); Chloride 106 mmol/L (98-107); Estimated Creatinine Clearance 91 ml/min; Glucose 92 mg/dl (70-99); Potassium 4.2 mmol/L (3.5-5.1); Sodium 135 mmol/L (135-145); eGFR > 60.00
--- NOTE | 2023-10-02 04:24 | PTCARENOTE ---
pt voided 250 erum urine, PVR 110. now resting comfortably in chair, call sepulveda within reach
--- NOTE | 2023-10-02 08:00 | PTCARENOTE ---
Bedside walking rounds report received. Patient seen on rounds resting in chair on room air. Awake alert and oriented x 3. Denies significant pain. NSR.. Ambulates with rolling walker with assist of 1. Improving.
[2023-10-02] MEDS: TYLENOL 1000 MG PO ×3 (08:23→22:21)
[2023-10-02] MEDS: CALCIUM GLUCONATE 130 MG IV (08:23)
[2023-10-02] MEDS: PROTONIX 40 MG PO (08:31)
[2023-10-02] MEDS: LIDOCAINE 4% PATCH 1 PATCH TOPICAL (08:31)
[2023-10-02] MEDS: PLAVIX 75 MG PO (08:31)
[2023-10-02] MEDS: LOW STRENGTH ASPIRIN 81 MG PO (08:31)
[2023-10-02] MEDS: FEOSOL 325 MG PO ×2 (08:31→19:54)
[2023-10-02] MEDS: VITAMIN C 500 MG PO (08:32)
[2023-10-02] MEDS: REGLAN 10 MG IV (08:32)
[2023-10-02] MEDS: TOPROL XL 12.5 MG PO ×2 (08:32→19:55)
[2023-10-02] MEDS: SENOKOT-S 1 TABLET PO ×2 (08:32→19:55)
[2023-10-02] MEDS: FLOMAX 0.800000000000000044 MG PO (08:32)
[2023-10-02] MEDS: MAGNESIUM OXIDE 500 MG PO ×2 (08:32→19:54)
[2023-10-02] MEDS: CRESTOR 20 MG PO (08:32)
[2023-10-02] MEDS: PACERONE 200 MG PO ×3 (08:33→22:21)
[2023-10-02] MEDS: NEURONTIN 100 MG PO ×3 (08:33→22:21)
[2023-10-02] MEDS: MIRALAX 17 GRAMS PO (08:33)
[2023-10-02] MEDS: NSS IV (09:44)
--- NOTE | 2023-10-02 13:00 | PTCARENOTE ---
Report given to IVU INGRID Trejo. Patient going for 2 view cxr then going to room 2256. No acute changes to report.
--- NOTE | 2023-10-02 13:33 | PTCARENOTE ---
Rec'd Pt as tx from [facility]. A,A+O x3, no c/o pain. Midsternal incision with aquacell dsg D+I. Bilat inner knee incisions TREVER and well approx. Dsg to CT sites D+I.
--- NOTE | 2023-10-02 18:29 | PTCARENOTE ---
Pt ambulated in halls and then down to family waiting lounge area and then back to room, danae well, offers no complaints.
[2023-10-02] MEDS: FLEXERIL 10 MG PO (22:21)
--- NOTE | 2023-10-02 23:14 | PTCARENOTE ---
Received pt at handoff. AOX3. Tele- SR. Assessment noted as documented. VSS. Aquacel and CT dressings c/d/i. B/l medial leg surgical sites SORT LINE WORKER. Pt ambulatory in hallway and room via rolling walker; steady gait. Offers no c/o at this time. Currently
in bed; call derick w/in reach.
[2023-10-03 05:54] VITALS: BP 111/67
[2023-10-03 06:00] VITALS: BMI 29.0
[2023-10-03] MEDS: TYLENOL 1000 MG PO ×2 (06:00→12:39)
[2023-10-03 06:19] LABS: Hematocrit 24.5 % (39.0-52.0); Mean Corp Hgb Conc. 32.7 g/dL (33.0-37.0); Mean Corpuscular Hgb 28.2 pg (27.0-31.0); Mean Corpuscular Volume 86.3 fL (80.0-94.0); Mean Platelet Volume 10.6 fL (7.4-10.4); Platelet Count 216 10^3/uL (130-400); Red Blood Cell Count 2.84 10^6/uL (4.70-6.10)
[2023-10-03 06:47] LABS: Blood Urea Nitrogen 30 mg/dl (9-20); Calcium 8.3 mg/dl (8.4-10.2); Carbon Dioxide 27 mmol/L (22-30); Chloride 103 mmol/L (98-107); Estimated Creatinine Clearance 102 ml/min; Glucose 97 mg/dl (70-99); Magnesium 2.4 mg/dl (1.6-2.3); Potassium 3.7 mmol/L (3.5-5.1); Sodium 137 mmol/L (135-145); eGFR > 60.00
--- NOTE | 2023-10-03 06:52 | W.PN.CT ---
Today's Communication / Plan
-
-No major issues overnight. Hemodynamically and neurologically intact
-Pleuritic chest pain has significantly improved following chest tube removal 10/01/23 medical
-Abdominal distention has also improved: +BS, +flatus, no BM yet. Will likely benefit from mag citrated today
-Urinary retention has resolved, now voiding spontaneously without significant post-void residual. On Flomax
-Per Urology, will reinsert and send home with kelley if pt fails voiding trial, will need to f/u with his outpt Urologist
-Received 2u PRBCs on 09/27 for h/h of 6.4/19.1, h/h is 8.0/24.5 today
-Plts 216K today was 139K yesterday, was as low as 70K. Cont ASA and Plavix
-Cont. current meds (ASA, Plavix, Crestor, Amio; 12.5 mg Toprol XL BID, Flomax)
-Diuresis if BP permits
-Replete electrolytes
-Encourage use of IS
-OOB into chair/Ambulate
-PT/OT following
-No temporary PW
-Home likely later today
Assessment / Plan
-
- mv-CAD CAD - s/p CABG x 5 (FAUSTO to LAD, GSV to D, GSV to OM, sGSV to PDA and RPLB) on 09/26/23, pod #7
- LVEF improved from 45-55% to 60-65%, no RWMA, no valvular heart disease
- HTN/HLD
- NESS, on CPAP
- BPH
- Elevated PSA
- Non-smoker
- Claustrophobia
- Acute postop blood loss anemia - s/p 4 pRBCs
- Acute postop coagulopathy - s/p 2 FFPs
- Acute postop thrombocytopenia - s/p 1 unit platelet
- Acute postop hypovolemia with subsequent hypervolemia
- Acute postop atelectasis/pleural effusion
- Acute postop pulmonary insufficiency
- Acute transient postop RBBB, LAFB - resolved
- Acute postop urinary retention (scanned for > 560 this AM, not able to void following kelley removal yesterday; straight cath)
- Acute postop probable paralytic ileus (distended abd, +flatus, no BM)
- Acute postop constipation
- Acute postop stable small right apical ptx post chest tube removal
Discussed patient care with: Cardiology, Nursing, Respiratory Therapy, Pharmacy and Care Team
Subjective
Procedure
- s/p CABG x 5 (FAUSTO to LAD, GSV to D, GSV to OM, sGSV to PDA and RPLB) on 09/26/23
-
Date of Service: October 03, 2023
Pt c/o mild incisional pain, otherwise feels well. Ambulating halls without difficulty
Objective Data
-
Lab Results
10/03/23 06:06
10/03/23 06:06
PT 17.4 Sec (11.4-14.6) H 09/27/23 00:30
INR 1.41 09/27/23 00:30
APTT 29.6 Sec (23.4-35.0) 09/27/23 00:30
Vital Signs
Vital Signs
Temp Pulse Resp BP Pulse Ox
98.7 F 87 16 111/67 91
10/03/23 05:54 10/03/23 06:00 10/03/23 05:54 10/03/23 05:54 10/03/23 05:54
CT Intake/Output/Weight
10/02/23 10/02/23 10/03/23
06:59 18:59 06:59
Intake Total 960 / 1990 480 / 480
Output Total 270 / 605
Balance 690 / 1385 480 / 480
SaO2: 92 (RA)
Physical Exam
-
General: Awake, Oriented and AOx3
Cardiovascular: Regular rate & rhythm, No Murmurs, No Rub and No Gallop
Respiratory: Decreased Breath Sounds
Sternum: Stable
Incision: Clean, Dry, Intact and Dressing Intact
Extremities: Other (trace edema)
Data Reviewed
-
Lab Results: Results Reviewed
Medications: Active Meds Reviewed
Chest X-Ray: Report Reviewed and Image Reviewed
ECG: Report Reviewed and Image Reviewed
[2023-10-03 08:18] VITALS: BP 116/63
[2023-10-03] MEDS: MIRALAX 17 GRAMS PO (08:19)
[2023-10-03] MEDS: LIDOCAINE 4% PATCH TOPICAL (08:20)
[2023-10-03] MEDS: TOPROL XL 12.5 MG PO (08:23)
[2023-10-03] MEDS: PLAVIX 75 MG PO (08:24)
[2023-10-03] MEDS: PACERONE 200 MG PO (08:24)
[2023-10-03] MEDS: FLOMAX 0.800000000000000044 MG PO (08:24)
[2023-10-03] MEDS: FEOSOL 325 MG PO (08:24)
[2023-10-03] MEDS: MAGNESIUM OXIDE 500 MG PO (08:25)
[2023-10-03] MEDS: PROTONIX 40 MG PO (08:25)
[2023-10-03] MEDS: LOW STRENGTH ASPIRIN 81 MG PO (08:25)
[2023-10-03] MEDS: VITAMIN C 500 MG PO (08:25)
[2023-10-03] MEDS: SENOKOT-S 1 TABLET PO (08:26)
[2023-10-03] MEDS: CRESTOR 20 MG PO (08:26)
[2023-10-03] MEDS: NEURONTIN 100 MG PO (08:26)
--- NOTE | 2023-10-03 09:15 | PTCARENOTE ---
Assumed care of pt from night RN. Pt received awake and alert, sitting up in chair. VSS, CM shows NSR 80's, POX 98% on RA. Pt reaching 1000 on IS. Accugel dsg CDI to sternal incision, ABD CDI to CT sites, offers no c/o pain or discomfort at this
time.
--- NOTE | 2023-10-03 09:31 | W.[place]-PDMP ---
[place]-PDMP
-
Checked the [place]- Prescription Drug Monitoring Program website, no red flags identified; safe to proceed with prescription.
--- NOTE | 2023-10-03 09:32 | W.DCSUMMARY ---
Discharge Summary
Discharge Data
Date of Admission: 09/21/23
Date of Discharge: 10/03/23
Total time spent discharging patient (in min): 40
-
Pending Results: No
Hospital Course
Primary care physician: Dr. Miguel Angel Gomez MD.
Outpatient cook helper preserves: Dr. Uli Dunlap MD [facility]
Inpatient consultants: [facility] Cardiology, Dr. Billy Hoskins MD.
Procedures:
1. Coronary artery bypass grafting x 5 (left internal mammary artery�left anterior descending coronary artery, greater saphenous vein�diagonal, greater saphenous vein�obtuse marginal, and greater saphenous vein to posterior descending coronary
artery in a sequential manner to the right posterior lateral branch ) by Dr. Jayme Hernandez MD. on 09/26/2023
Primary Diagnosis:
1. Multivessel coronary artery disease
2. Unstable angina
Secondary Diagnoses:
1. Hypertension
2. Hyperlipidemia
3. Obstructive sleep apnea with continuous positive airway pressure machine
4. Benign prostatic hypertrophy
5. Elevated prostate specific antigen
HPI:
Patient is extremely pleasant 63-year-old male who presented to [facility]'s emergency department on 09/21/2023 with progressive chest pain. EKG was performed showing sinus rhythm and inferior lateral ischemia. Troponin was
negative at less than 0.012. Left heart catheterization was performed and the patient was found to have multivessel coronary artery disease. Patient was admitted, CT surgery was consulted, and he was subsequently scheduled for the operating
theater on 09/26/2023.
Hospital course:
Patient underwent the procedure described above in the date described above. Patient tolerated procedure well. Patient was from cardiopulmonary bypass. Patient remained intubated. Patient was transported from the operating room to the
cardiovascular intensive care unit where he underwent his postoperative recovery. His postoperative course was notable for coagulopathy/postoperative acute blood loss anemia. Patient received 2 units of fresh frozen plasma, 2 units of packed red
blood cells, and 1 pack of platelets on postoperative day 0. Patient was successfully extubated on postoperative day 0.
The patient was progressed in routine fashion. Levo was able to be weaned off on postoperative day 1 after 500 milliliters of albumin. Plavix was held on postoperative day 1 due to platelets of 71. On postoperative day #2 hemoglobin was 6.4 and
the patient was given additional 2 units of packed red blood cells. Hemoglobin was rechecked and increased to 8.5. Patient was diuresed with Lasix 40 mg IV x 1. Additional postoperative complications included:
Right apical pneumothorax status post chest tube removal as well as postoperative urinary retention.
Patient underwent straight cath x 2 on postoperative day 3 and was started on Flomax., His Rebolledo was pulled however reinserted on postoperative day #4. Urology was consulted. Flomax was increased to 0.8 mg daily. Chest tubes were transition to
bulb suction. On postoperative day #5 chest tubes were removed and the patient's postoperative pain greatly improved. Voiding trial was performed and Rebolledo catheter was also removed on postoperative day 5. Status post chest tube removal the
patient was noted to have a small right apical pneumothorax. This was followed on postoperative day #6 and 7. Patient continued to void without issues. Chest x-ray was performed on postoperative day #7 and showed a small stable right pneumothorax.
Patient was seen by attending physician on morning rounds. He was medically cleared to be discharged to home with home care services. Patient will have a PA and lateral chest x-ray performed in 1 week outpatient to follow-up on stable right
pneumothorax.
Home medication changes:
Please pay attention to the following medication changes:
Take acetaminophen 650 mg every 4 hours PRN-fever, mild pain control
Take vitamin C 500 mg daily x 2 weeks and then stop�postoperative acute blood loss anemia
Take Plavix 75 mg daily x 30 days and then stop-graft patency s/p CABG
Take Flexeril 10 mg at bedtime as needed-muscle spasm/sleep
Take ferrous sulfate 325 mg twice daily x 2 weeks and then stop�postoperative acute blood loss anemia
Use lidocaine patch 4% 1 patch topical daily remove nightly�mild pain/incisional pain
Take metoprolol succinate 12.5 mg twice daily�s/p CABG, HTN
Take oxycodone 5 mg every 6 hours PRN�moderate to severe pain control
Take Protonix 40 mg daily�GI prophylaxis with Plavix
Take sennosides�docusate sodium 8.6/50 mg 1 tab every 12 hours�for constipation while using narcotic
Take Flomax 0.8 mg daily until seen by urology-prostate under workup, postoperative urinary retention
Please stop the following medications:
stop isosorbide mononitrate 60mg daily
stop nitroglycerin 0.4 mg SL PRN
stop Metoprolol Succinate 50 mg QD and replace with Metoprolol Succinate 12.5 mg BID.
stop taking Norvasc 5 mg daily-re evaluate at follow up with Cardiology Dr. Sergio Dunlap
Discharge Plan
-
Patient Disposition: Home (Routine Discharge)
Discharge Diagnosis/Procedures: CAD/CABG
Condition: Fair
Diet: Low Cholesterol and Low Sodium
Activity: No strenuous activity
Driving Restrictions: Not until seen by your Dr
Bathing Restrictions: OK to Shower
Others Tests: PA/Lateral Chest X Ray-follow up for right pneumothorax
Other Services: Cardiac Rehab
Specialty Instructions: Weigh Daily- Call MD for wt gain/loss 3 lbs overnight/5 lbs in 1 week
Activity Restrictions/Additional Instructions:
Please call to make appointments for Phase II cardiac Rehab:
ACTIVITY:
-No strenuous activity: no heavy lifting, pushing, pulling anything over 15 pounds for one month
-continue to use stairs as tolerated
DRIVING RESTRICTIONS:
-No driving for one month or until approved by your surgeon
WOUND CARE:
-Shower daily. Use soap & water.
-No lotions, creams or powders on incision area.
DIET:
-continue a low fat/low cholesterol diet.
-IF you are diabetic, continue carb controlled diet.
CARDIAC REHAB:
-Please make appointment to start in 5-6 weeks with your local hospital program. (See Cardiac Rehabilitation Discharge Booklet).
SPECIALTY INSTRUCTIONS:
-Weigh yourself daily. Call your physician for any weight gain/loss of 3 lbs overnight or 5 lbs in one week.
-REPORT any clicking noise or uneven appearance of your sternum to your surgeon immediately.
-If you smoke, you are instructed to quit. The [place] smoking hotline phone number is [phone] [facility]
[address] [facility]
[phone] [facility]
Please pay attention to the following medication changes:
Take acetaminophen 650 mg every 4 hours PRN-fever, mild pain control
Take vitamin C 500 mg daily x 2 weeks and then stop�postoperative acute blood loss anemia
Take Plavix 75 mg daily x 30 days and then stop-graft patency s/p CABG
Take Flexeril 10 mg at bedtime as needed-muscle spasm/sleep
Take ferrous sulfate 325 mg twice daily x 2 weeks and then stop�postoperative acute blood loss anemia
Use lidocaine patch 4% 1 patch topical daily remove nightly�mild pain/incisional pain
Take metoprolol succinate 12.5 mg twice daily�s/p CABG, HTN
Take oxycodone 5 mg every 6 hours PRN�moderate to severe pain control
Take Protonix 40 mg daily�GI prophylaxis with Plavix
Take sennosides�docusate sodium 8.6/50 mg 1 tab every 12 hours�for constipation while using narcotic
Take Flomax 0.8 mg daily until seen by urology-prostate under workup, postoperative urinary retention
Please stop the following medications:
stop isosorbide mononitrate 60mg daily
stop nitroglycerin 0.4 mg SL PRN
stop Metoprolol Succinate 50 mg QD and replace with Metoprolol Succinate 12.5 mg BID.
stop taking Norvasc 5 mg daily-re evaluate at follow up with Cardiology Dr. Sergio Dunlap
Referrals:
CT Transitional Care Nurse [Outside] - in one to two days (The Cardiothoracic Transitional Care Nurse will call you to set up a visit in 1-2 days.)
Miguel Angel Torres MD [Family Provider] -
Sergio Dunlap MD [Non-Admitting Privileges] - 11/08/23 10:00 am
Jayme Hernandez MD [Active] - 10/30/23 3:00 pm
Additional Discharge Medication Instructions: stop isosorbide mononitrate 60mg daily
stop nitroglycerin 0.4 mg SL PRN
stop Metoprolol Succinate 50 mg QD and replace with Metoprolol Succinate 12.5 mg BID.
stop taking Norvasc 5 mg daily-re evaluate at follow up with Cardiology Dr. Sergio Dunlap
Prescriptions:
New
pantoprazole 40 mg Tablet,Delayed Release (Dr/Ec)
40 mg PO DAILY Qty: 30 1RF
metoprolol succinate 25 mg Tablet Extended Release 24 Hr
12.5 mg PO BID Qty: 30 1RF
Rx Instructions:
take 1/2 of 25 mg tab BID
ferrous sulfate [FeroSul] 325 mg (65 mg iron) Tablet
325 mg PO BID Qty: 30 0RF
Rx Instructions:
Take for 2 weeks until the bottle is empty and then stop
cyclobenzaprine 10 mg Tablet
10 mg PO HS PRN (Reason: muscle spasm) Qty: 30 0RF
lidocaine 4 % Adhesive Patch,Medicated
1 patch topical DAILY Qty: 30 0RF
Rx Instructions:
May cut pat in 1/2 apply to each side of incision
tamsulosin 0.4 mg Capsule
0.8 mg PO DAILY Qty: 60 0RF
Rx Instructions:
Take until follow up with Urology. Discuss continuing/refills with them at office appointment
clopidogrel 75 mg Tablet
75 mg PO DAILY Qty: 30 0RF
Rx Instructions:
Take for 30 days and then stop
Remove Patch [Remove Lidocaine Patch]
30 patch topical DAILY@1999 Qty: 30 0RF
oxycodone 5 mg Tablet
5 mg PO Q6HPRN PRN (Reason: moderate-severe pain ) Qty: 28 0RF
Rx Instructions:
Ongoing pain control. Attending physician Dr. Jayme Hernandez MD
sennosides-docusate sodium [Stool Softener-Stimulant Laxat] 8.6-50 mg Tablet
1 tab PO Q12 Qty: 30 0RF
Rx Instructions:
Take for constipation and while using narcotic
acetaminophen 325 mg Tablet
650 mg PO Q4HPRN PRN (Reason: mild pain,headache,temp >101F ) Qty: 0 0RF
Rx Instructions:
Please purchase over the counter.
ascorbic acid (vitamin C) [Vitamin C] 500 mg Tablet
500 mg PO DAILY Qty: 15 0RF
Rx Instructions:
Take for 2 weeks until bottle is empty and then stop
Continued
aspirin 81 mg tablet,delayed release (DR/EC)
81 mg PO DAILY
rosuvastatin 20 mg tablet
20 mg PO DAILY
Discontinued
metoprolol succinate 50 mg tablet extended release 24 hr
50 mg PO DAILY
amlodipine 5 mg tablet
5 mg PO DAILY
isosorbide mononitrate 60 mg tablet extended release 24 hr
60 mg PO DAILY
nitroglycerin 0.4 mg tablet, sublingual
0.4 mg sublingual PRN PRN (Reason: chest pain)
Discharge Orders:
Discharge Patient (As Directed); Ordered 10/03/23
Ordered By: Mary Carmen Payne
Care Plan Goals
Care Plan Goals:
Problem: Readiness for enhanced knowledge related to diagnosis and treatment plan
Goal: Understand your diagnosis and treatment plan needs, including medications if applicable.
Instructions: Know your diagnosis, underlying causes and treatment plan options, including medications if applicable. Consult with your health care team to learn about your diagnosis and treatment plan, including medications if applicable.
--- NOTE | 2023-10-03 11:10 | CM ---
Chart reviewed. Patient is independent of ADLS, lives with his and daughter in a 2 [address], 1st floor set up, 2 [address], does have a rolling walker at home. PT/OT recommending rehab vs HH. Patient is refusing rehab, stating he has a 1 st floor set
up at home and family to assist. He also said it is much easier for him to get around without his chest tubes. Plan is for the patient to return home with CT Transitional RN.
--- NOTE | 2023-10-03 11:38 | W.PN.CARDCBS ---
Addendum entered and electronically signed by Billy Hoskins MD 10/03/23 13:15:
I saw and examined the patient.
The [facility] or PA's note was reviewed and I agree with the note.
Comment: General: Well developed, well nourished in NAD.
Neck: Supple, no JVD, HJR, carotids +2 B/L, no bruits bilaterally.
Heart: Non displaced PMI, RRR, no murmurs, No S3, S4, no rubs.
Lungs: Scattered rhonchi
Sternal dressings noted
Extremities: No clubbing, cyanosis or edema bilaterally.
Neuro: Grossly nonfocal, awake, alert and oriented x3.
Stable cardiology status for discharge
Follow-up with [facility]
Remains in sinus rhythm
Original Note:
Today's Communication / Plan
-
for DC today
continue asa, plavix, toprol, crestor
cardiac rehab
OP follow up with [facility]
Impression / Plan
-
PCP: Dr. Torres
Economic Development Coordinator: Dr. Guillen of [facility]
Impression:
Presented with chest pain
Unstable angina
Abnormal, high risk stress test
Severe multivessel CAD by cath 09/22/23
s/p CABG x 5 (GUERRA to LAD, GSV to D, GSV to OM, sGSV to PDA and RPLB) 09/26/23
Ischemic cardiomyopathy, EF 45%
HTN
HLD
NESS on CPAP
Echo 09/05/2023: EF 45%, mild concentric LVH, no significant valvular disease
Echo 09/27/2023: Technically difficult study, EF 65 to 70%, normal pericardium without effusion
Plan:
-s/p CABG x 5 GUERRA to LAD, GSV to D, GSV to OM, sGSV to PDA and RPLB 09/26/23.
-Continue aspirin, Plavix. hgb 8.0/plts 216
-Continue Toprol 12.5 mg twice daily. he remains off preadmission norvasc and imdur
-Remains in sinus rhythm on review of telemetry
-continue crestor
-OP follow up with [facility]
-cardiac rehab
-planned for DC today
-d/w CT surgery, nursing
HPI: Yves is a 63 year old male with PMH of HTN, HLD, and NESS on CPAP who presented to [facility] due to progressively worsening angina. He was recently seen by cardiology at [facility] and was arranged for echo and stress testing. Stress testing reportedly
was high risk with significant inferolateral ischemia noted. Due to progressive symptoms, came to ER for sooner evaluation. He reports overall symptoms started approximately 1 month ago when he began having increased chest pain with exertion.
Symptoms resolved with rest. Over time, symptoms have been brought on with lesser and lesser degrees of exertion and now he is symptomatic with minimal exertion and has mild pain at rest. Denies any associated shortness of breath, dizziness,
lightheadedness, lower extremity edema, or diaphoresis. He reports currently he has very minimal discomfort. He notes no personal prior cardiac history, however notes strong family history in his mother, father, and brother.
Progress Note - Economic Development Coordinator
Subjective
Date of Service: October 03, 2023
Main issue today is constipation. For discharge today
Objective
Labs:
10/03/23 06:06
10/03/23 06:06
Labs
Hgb 8.0 g/dL (13.0-18.0) L 10/03/23 06:06
Hct 24.5 % (39.0-52.0) L 10/03/23 06:06
Plt Count 216 10^3/uL (130-400) D 10/03/23 06:06
PT 17.4 Sec (11.4-14.6) H 09/27/23 00:30
INR 1.41 09/27/23 00:30
APTT 29.6 Sec (23.4-35.0) 09/27/23 00:30
Sodium 137 mmol/L (135-145) 10/03/23 06:06
Potassium 3.7 mmol/L (3.5-5.1) 10/03/23 06:06
BUN 30 mg/dl (9-20) H 10/03/23 06:06
Creatinine 0.8 mg/dL (0.7-1.3) 10/03/23 06:06
Glucose 97 mg/dl (70-99) 10/03/23 06:06
Vital Signs and I&O:
Vital Signs
Temp Pulse Resp BP Pulse Ox
98.4 F 92 20 116/63 99
10/03/23 11:04 10/03/23 09:00 10/03/23 11:04 10/03/23 08:23 10/03/23 11:04
Vital Signs
Temp Pulse Resp BP Pulse Ox
98.4 F 92 20 116/63 99
10/03/23 11:04 10/03/23 09:00 10/03/23 11:04 10/03/23 08:23 10/03/23 11:04
Intake & Output
10/01/23 10/02/23 10/03/23 10/04/23
07:59 07:59 07:59 07:59
Intake Total 830 / 1230 1990 / 2470 480 / 480
Output Total 1280 / 1315 605 / 605
Balance -450 / -85 1385 / 1865 480 / 480
Physical Exam
Physical Exam
GEN: No distress, awake, alert, oriented x3. sitting in chair
HEENT: supple, anicteric, mmm, eomi
LUNGS: decreased BS B/L, no wheezes
CV: Reg, S1/S2, no murmur
ABD: soft, BS+, NT/ND
EXT: No cyanosis, clubbing. Trace edema of B/L LE
NEURO: Gross non-focal
SKIN: Warm, pink, dry. No rash. Sternotomy dressing c/d/i
--- NOTE | 2023-10-03 12:13 | PTCARENOTE ---
Acquacel dsg to chest removed, abd removed from chest tube sites. Pt took shower, tolerated activity well.
[2023-10-03] MEDS: NSS IV (12:39)
--- NOTE | 2023-10-03 14:55 | PTCARENOTE ---
All D/C info reviewed with pt and spouse all questions answered. Pt d/c'd home with spouse.
== END 2023-10-03 14:40 | disposition home or self-care (01) | DRG 233 ==
LOC: IVU 11:47
PROVIDERS: Internal Medicine; Internal Medicine Interventional Cardiology; Nurse Practitioner; Physician Assistant; Physician Assistant Medical; Physician Assistant Surgical; ADMITTING PHYSICIAN Internal Medicine Cardiovascular Disease; ATTENDING PHYSICIAN Thoracic Surgery (Cardiothoracic Vascular Surgery); CONSULT PHYSICIAN Internal Medicine Critical Care Medicine; EMERGENCY PHYSICIAN Emergency Medicine; FAMILY PHYSICIAN Family Medicine
PROC: 4A023N7 Measurement of Cardiac Sampling and Pressure, Left Heart, Percutaneous Approach (ICD-10-PCS; 2023-09-21)
PROC: B2111ZZ Fluoroscopy of Multiple Coronary Arteries using Low Osmolar Contrast (ICD-10-PCS; 2023-09-21)
PROC: 30233N1 Transfusion of Nonautologous Red Blood Cells into Peripheral Vein, Percutaneous Approach (ICD-10-PCS; 2023-09-26)
PROC: 02100ZC Bypass Coronary Artery, One Artery from Thoracic Artery, Open Approach (ICD-10-PCS; 2023-09-26)
PROC: 5A1221Z Performance of Cardiac Output, Continuous (ICD-10-PCS; 2023-09-26)
PROC: 06BQ4ZZ Excision of Left Saphenous Vein, Percutaneous Endoscopic Approach (ICD-10-PCS; 2023-09-26)
PROC: 06BP4ZZ Excision of Right Saphenous Vein, Percutaneous Endoscopic Approach (ICD-10-PCS; 2023-09-26)
PROC: 30233R1 Transfusion of Nonautologous Platelets into Peripheral Vein, Percutaneous Approach (ICD-10-PCS; 2023-09-26)
PROC: 0213093 Bypass Coronary Artery, Four or More Arteries from Coronary Artery with Autologous Venous Tissue, Open Approach (ICD-10-PCS; 2023-09-26)
PROC: 30233K1 Transfusion of Nonautologous Frozen Plasma into Peripheral Vein, Percutaneous Approach (ICD-10-PCS; 2023-09-26)
PROC: B24BZZ4 Ultrasonography of Heart with Aorta, Transesophageal (ICD-10-PCS; 2023-09-26)
PROC: 0WP9X0Z Removal of Drainage Device from Right Pleural Cavity, External Approach (ICD-10-PCS; 2023-10-01)
DX: I25.110 Atherosclerotic heart disease of native coronary artery with unstable angina pectoris (principal); J95.1 Acute pulmonary insufficiency following thoracic surgery; D62 Acute posthemorrhagic anemia; D68.9 Coagulation defect, unspecified; J98.11 Atelectasis; K56.0 Paralytic ileus; J90 Pleural effusion, not elsewhere classified; J93.83 Other pneumothorax; I42.9 Cardiomyopathy, unspecified; I10 Essential (primary) hypertension; G47.33 Obstructive sleep apnea (adult) (pediatric); I25.5 Ischemic cardiomyopathy; N40.0 Benign prostatic hyperplasia without lower urinary tract symptoms; E78.00 Pure hypercholesterolemia, unspecified; D69.6 Thrombocytopenia, unspecified; E86.1 Hypovolemia; E87.70 Fluid overload, unspecified; I45.10 Unspecified right bundle-branch block; F40.240 Claustrophobia; I95.81 Postprocedural hypotension; R33.9 Retention of urine, unspecified; R07.81 Pleurodynia; K59.00 Constipation, unspecified; Z79.82 Long term (current) use of aspirin; Z82.49 Family history of ischemic heart disease and other diseases of the circulatory system; Z83.3 Family history of diabetes mellitus
CPT/HCPCS: 93308; 71045; 71046; 71250; 74018; 80048; 80053; 80061; 80076; 81003; 82248; 82330; 82565; 82805; 82810; 82947; 82962; 83036; 83690; 83735; 83880; 84132; 84302; 84484; 84520; 85014; 85018; 85025; 85027; 85049; 85347; 85384; 85576; 85610; 85730; 86803; 86850; 86900; 86901; 86920; 93005; 93306; 93312; 93320; 93325; 93458; 93880; 94002; 94003; 97116; 97163; 97167; 97530; 97535; 99285; C1894; P9016; P9045; P9059; P9073; Q9950; Q9967

== ENCOUNTER → 2023-10-11 10:09 | Outpatient (REF) | payer OTHER, SELFPAY | LOC: RAD 10:09 | PROVIDERS: ATTENDING PHYSICIAN Thoracic Surgery (Cardiothoracic Vascular Surgery) | DX: J95.811 Postprocedural pneumothorax (principal) | CPT/HCPCS: 71046 ==